=== PATIENT | female | born 1950 | race American Indian/Alaskan Native ===

== ENCOUNTER 2021-04-04 18:34 | Observation (INO) | payer MEDICARE ==
--- NOTE | 2021-04-04 19:31 | Emergency Department Report ---
ED Altered Mental Status HPI - General Chief Complaint: Altered Mental Status Stated Complaint: LETHARGIC Time Seen by Provider: 04/04/21 19:20 Source: EMS Mode of arrival: Stretcher Limitations: Physical Limitation - History of Present Illness Initial Comments: 71-year-old female, history of CVA, dementia, presents to ED from [facility] with altered mental status x1 day. Unclear what patient's baseline is. She currently has no complaints. She denies chest pain, headache, abdominal pain, shortness of breath, vomiting, diarrhea. Patient is oriented to self and place. Unable to tell me the year. Per EMS, Accu-Chek was normal. MD Complaint: altered mental status -: unknown Severity: Unable to Determine Context: unknown Associated Symptoms: denies other symptoms. denies: chest pain, headaches, nausea/vomiting, shortness of breath - Related Data Home Medications Medication Instructions Recorded Confirmed Last Taken AtorvaSTATin 10 mg PO HS 04/04/21 04/04/21 Unknown Haldol 10 mg PO BID 04/04/21 04/04/21 Unknown Memantine 5 mg PO HS 04/04/21 04/04/21 Unknown VALPROIC ACID Liq 04/04/21 Unknown amLODIPine 10 mg PO DAILY 04/04/21 04/04/21 Unknown carvediloL 6.25 mg PO DAILY 04/04/21 04/04/21 Unknown donepeziL 5 mg PO HS 04/04/21 04/04/21 Unknown metFORMIN 1,000 mg PO DAILY 04/04/21 04/04/21 Unknown traZODone [Desyrel] 1 tab PO HS 04/04/21 04/04/21 Unknown Allergies Allergy/AdvReac Type Severity Reaction Status Date / Time No Known Allergies Allergy Unverified 04/04/21 18:48 ED Review of Systems ROS: Stated complaint: LETHARGIC Other details as noted in HPI Comment: All other systems reviewed and negative Constitutional: denies: fever Respiratory: denies: shortness of breath Cardiovascular: denies: chest pain Gastrointestinal: denies: abdominal pain, vomiting, diarrhea Neurological: denies: headache ED Past Medical Hx - Past Medical History Previous Medical History?: Yes Hx Hypertension: Yes Hx CVA: Yes Hx Diabetes: Yes Hx Dementia: Yes - Surgical History Past Surgical History?: No - Social History Smoking Status: Unknown if ever smoked Substance Use Type: None - Medications Home Medications: Home Medications Medication Instructions Recorded Confirmed Last Taken Type AtorvaSTATin 10 mg PO HS 04/04/21 04/04/21 Unknown History Haldol 10 mg PO BID 04/04/21 04/04/21 Unknown History Memantine 5 mg PO HS 04/04/21 04/04/21 Unknown History VALPROIC ACID Liq 04/04/21 Unknown History amLODIPine 10 mg PO DAILY 04/04/21 04/04/21 Unknown History carvediloL 6.25 mg PO DAILY 04/04/21 04/04/21 Unknown History donepeziL 5 mg PO HS 04/04/21 04/04/21 Unknown History metFORMIN 1,000 mg PO DAILY 04/04/21 04/04/21 Unknown History traZODone [Desyrel] 1 tab PO HS 04/04/21 04/04/21 Unknown History ED Physical Exam - General Limitations: Physical Limitation General appearance: in no apparent distress, lethargic - Head Head exam: Present: atraumatic, normocephalic - Eye Eye exam: Present: normal appearance, EOMI - ENT ENT exam: Present: mucous membranes moist - Neck Neck exam: Present: normal inspection - Respiratory Respiratory exam: Present: normal lung sounds bilaterally. Absent: respiratory distress - Cardiovascular Cardiovascular Exam: Present: regular rate, normal rhythm - GI/Abdominal GI/Abdominal exam: Present: soft. Absent: distended, tenderness - Extremities Exam Extremities exam: Present: normal inspection - Neurological Exam Neurological exam: Present: alert, motor sensory deficit (Right-sided weakness, likely baseline, history of CVA reported), other (Patient is slow to respond). Absent: oriented X3 (Oriented to place and self) - Psychiatric Psychiatric exam: Present: flat affect - Skin Skin exam: Present: warm, dry, intact, normal color ED Course Vital Signs 04/04/21 04/04/21 04/04/21 19:03 19:14 19:16 Temperature 99 F Pulse Rate 72 76 Respiratory 23 20 13 Rate Blood Pressure 144/70 144/70 Blood Pressure 144/70 [Left] O2 Sat by Pulse 100 100 Oximetry 04/04/21 04/04/21 04/04/21 19:30 19:46 20:00 Temperature Pulse Rate 76 73 73 Respiratory 14 12 13 Rate Blood Pressure 144/70 144/70 144/70 Blood Pressure [Left] O2 Sat by Pulse 98 98 99 Oximetry 04/04/21 04/04/21 04/04/21 20:22 20:37 20:40 Temperature Pulse Rate 75 73 Respiratory 8 L 14 18 Rate Blood Pressure 144/70 138/76 Blood Pressure [Left] O2 Sat by Pulse 97 98 100 Oximetry 04/04/21 04/04/21 04/04/21 20:45 21:00 21:15 Temperature Pulse Rate 76 76 75 Respiratory 12 18 8 L Rate Blood Pressure 138/76 134/67 134/67 Blood Pressure [Left] O2 Sat by Pulse 99 99 Oximetry - Lab Data Result diagrams: 04/04/21 19:30 04/04/21 19:30 Lab Results 04/04/21 04/04/21 04/04/21 Range/Units 19:30 19:30 19:30 WBC 5.8 (4.5-11.0) K/mm3 RBC 4.36 (3.65-5.03) M/mm3 Hgb 14.8 H (10.1-14.3) gm/dl Hct 43.3 H (30.3-42.9) % MCV 99 H (79-97) fl MCH 34 H (28-32) pg MCHC 34 (30-34) % RDW 12.4 L (13.2-15.2) % Plt Count 264 (140-440) K/mm3 Lymph % (Auto) 25.7 (13.4-35.0) % [place] % (Auto) 6.7 (0.0-7.3) % Eos % (Auto) 0.5 (0.0-4.3) % Baso % (Auto) 0.8 (0.0-1.8) % Lymph # (Auto) 1.5 (1.2-5.4) K/mm3 [place] # (Auto) 0.4 (0.0-0.8) K/mm3 Eos # (Auto) 0.0 (0.0-0.4) K/mm3 Baso # (Auto) 0.0 (0.0-0.1) K/mm3 Seg Neutrophils % 66.3 (40.0-70.0) % Seg Neutrophils # 3.9 (1.8-7.7) K/mm3 Sodium 139 (137-145) mmol/L Potassium 4.1 (3.6-5.0) mmol/L Chloride 98.4 (98-107) mmol/L Carbon Dioxide 21 L (22-30) mmol/L Anion Gap 24 mmol/L BUN 18 H (7-17) mg/dL Creatinine 0.6 (0.6-1.2) mg/dL Estimated GFR > 60 ml/min BUN/Creatinine Ratio 30 % Glucose 100 (65-100) mg/dL POC Glucose (70-105) mg/dL Calcium 9.6 (8.4-10.2) mg/dL Total Bilirubin 0.30 (0.1-1.2) mg/dL Direct Bilirubin < 0.2 (0-0.2) mg/dL Indirect Bilirubin 0.1 mg/dL AST 14 (5-40) units/L ALT 9 (7-56) units/L Alkaline Phosphatase 91 (35-129) units/L Troponin T < 0.010 (0.00-0.029) ng/mL Total Protein 7.1 (6.3-8.2) g/dL Albumin 4.2 (3.9-5) g/dL Albumin/Globulin Ratio 1.4 % TSH (0.270-4.200) mlU/mL Free T4 (0.76-1.46) ng/dL Salicylates (2.8-20.0) mg/dL Acetaminophen (10.0-30.0) ug/mL Valproic Acid (50-100) ug/mL Plasma/Serum Alcohol (0-0.07) % 04/04/21 04/04/21 04/04/21 Range/Units 19:30 19:30 19:30 WBC (4.5-11.0) K/mm3 RBC (3.65-5.03) M/mm3 Hgb (10.1-14.3) gm/dl Hct (30.3-42.9) % MCV (79-97) fl MCH (28-32) pg MCHC (30-34) % RDW (13.2-15.2) % Plt Count (140-440) K/mm3 Lymph % (Auto) (13.4-35.0) % [place] % (Auto) (0.0-7.3) % Eos % (Auto) (0.0-4.3) % Baso % (Auto) (0.0-1.8) % Lymph # (Auto) (1.2-5.4) K/mm3 [place] # (Auto) (0.0-0.8) K/mm3 Eos # (Auto) (0.0-0.4) K/mm3 Baso # (Auto) (0.0-0.1) K/mm3 Seg Neutrophils % (40.0-70.0) % Seg Neutrophils # (1.8-7.7) K/mm3 Sodium (137-145) mmol/L Potassium (3.6-5.0) mmol/L Chloride (98-107) mmol/L Carbon Dioxide (22-30) mmol/L Anion Gap mmol/L BUN (7-17) mg/dL Creatinine (0.6-1.2) mg/dL Estimated GFR ml/min BUN/Creatinine Ratio % Glucose (65-100) mg/dL POC Glucose (70-105) mg/dL Calcium (8.4-10.2) mg/dL Total Bilirubin (0.1-1.2) mg/dL Direct Bilirubin (0-0.2) mg/dL Indirect Bilirubin mg/dL AST (5-40) units/L ALT (7-56) units/L Alkaline Phosphatase (35-129) units/L Troponin T (0.00-0.029) ng/mL Total Protein (6.3-8.2) g/dL Albumin (3.9-5) g/dL Albumin/Globulin Ratio % TSH 1.020 (0.270-4.200) mlU/mL Free T4 1.24 (0.76-1.46) ng/dL Salicylates 0.3 L (2.8-20.0) mg/dL Acetaminophen 5.0 L (10.0-30.0) ug/mL Valproic Acid 74.6 (50-100) ug/mL Plasma/Serum Alcohol (0-0.07) % 04/04/21 04/04/21 Range/Units 19:30 19:38 WBC (4.5-11.0) K/mm3 RBC (3.65-5.03) M/mm3 Hgb (10.1-14.3) gm/dl Hct (30.3-42.9) % MCV (79-97) fl MCH (28-32) pg MCHC (30-34) % RDW (13.2-15.2) % Plt Count (140-440) K/mm3 Lymph % (Auto) (13.4-35.0) % [place] % (Auto) (0.0-7.3) % Eos % (Auto) (0.0-4.3) % Baso % (Auto) (0.0-1.8) % Lymph # (Auto) (1.2-5.4) K/mm3 [place] # (Auto) (0.0-0.8) K/mm3 Eos # (Auto) (0.0-0.4) K/mm3 Baso # (Auto) (0.0-0.1) K/mm3 Seg Neutrophils % (40.0-70.0) % Seg Neutrophils # (1.8-7.7) K/mm3 Sodium (137-145) mmol/L Potassium (3.6-5.0) mmol/L Chloride (98-107) mmol/L Carbon Dioxide (22-30) mmol/L Anion Gap mmol/L BUN (7-17) mg/dL Creatinine (0.6-1.2) mg/dL Estimated GFR ml/min BUN/Creatinine Ratio % Glucose (65-100) mg/dL POC Glucose 93 (70-105) mg/dL Calcium (8.4-10.2) mg/dL Total Bilirubin (0.1-1.2) mg/dL Direct Bilirubin (0-0.2) mg/dL Indirect Bilirubin mg/dL AST (5-40) units/L ALT (7-56) units/L Alkaline Phosphatase (35-129) units/L Troponin T (0.00-0.029) ng/mL Total Protein (6.3-8.2) g/dL Albumin (3.9-5) g/dL Albumin/Globulin Ratio % TSH (0.270-4.200) mlU/mL Free T4 (0.76-1.46) ng/dL Salicylates (2.8-20.0) mg/dL Acetaminophen (10.0-30.0) ug/mL Valproic Acid (50-100) ug/mL Plasma/Serum Alcohol < 0.01 (0-0.07) % - Radiology Data Radiology results: report reviewed, image reviewed - Medical Decision Making 71-year-old female, history of CVA, dementia, presents to ED from [facility] with altered mental status x1 day. Unclear what patient's baseline is. She currently has no complaints. She denies chest pain, headache, abdominal pain, shortness of breath, vomiting, diarrhea. Patient is oriented to self and place. Unable to tell me the year. Per EMS, Accu-Chek was normal. Vital signs are stable. CT head negative for any acute findings. Chest x-ray is normal. Serum labs are normal. UA shows evidence of UTI with 4+ bacteria present. Rocephin given. Drug screen also positive for marijuana and amphetamines. Patient will be admitted by hospitalist, Dr. Carnes, for further management. - Differential Diagnosis Infection, UTI, electrolyte abnormality, renal failure Critical care attestation.: If time is entered above; I have spent that time in minutes in the direct care of this critically ill patient, excluding procedure time. ED Disposition Clinical Impression: UTI (urinary tract infection), Acute encephalopathy, Marijuana use, Amphetamine abuse Disposition: ADMITTED INPATIENT Is pt being admited?: Yes Condition: Stable
[2021-04-04 19:39] LABS: Basophils % (Auto) 0.8 % (0.0-1.8); Eosinophils % (Auto) 0.5 % (0.0-4.3); Hematocrit 43.3 % (30.3-42.9); Hemoglobin 14.8 gm/dl (10.1-14.3); Lymphocytes # (Auto) 1.5 K/mm3 (1.2-5.4); Lymphocytes % (Auto) 25.7 % (13.4-35.0); Mean Corpuscular HGB Conc 34 % (30-34); Mean Corpuscular Volume 99 fl (79-97); Monocytes # (Auto) 0.4 K/mm3 (0.0-0.8); Monocytes % (Auto) 6.7 % (0.0-7.3); Platelet Count 264 K/mm3 (140-440); Red Blood Count 4.36 M/mm3 (3.65-5.03); Red Cell Distribution Width 12.4 % (13.2-15.2)
[2021-04-04 20:04] LABS: Alanine Aminotransferase 9 units/L (7-56); Albumin 4.2 g/dL (3.9-5)
[2021-04-04 20:06] LABS: Blood Urea Nitrogen 18 mg/dL (7-17); Calcium 9.6 mg/dL (8.4-10.2); Hemolysis Index 40
[2021-04-04 20:07] LABS: BUN/Creatinine Ratio 30; Bilirubin,Direct < 0.2 mg/dL (0-0.2)
--- NOTE | 2021-04-04 20:10 | XRay Report ---
CHEST 1 VIEW INDICATION / CLINICAL INFORMATION: weakness. COMPARISON: None available. FINDINGS: SUPPORT DEVICES: None. HEART / MEDIASTINUM: No significant abnormality. LUNGS / PLEURA: No significant pulmonary or pleural abnormality. No pneumothorax. ADDITIONAL FINDINGS: No significant additional findings. IMPRESSION: 1. No acute findings. Signer Name: Jean-Pierre Olson MD Signed: 04/04/2021 8:06 PM Workstation Name: [id number]
[2021-04-04 20:13] LABS: Benzodiazepines Screen,Urine Negative; Cocaine Screen,Urine Negative; Methadone Screen,Urine Negative; Opiate Screen,Urine Negative
[2021-04-04 20:18] LABS: Free T4 (Free Thyroxine) 1.24 ng/dL (0.76-1.46)
[2021-04-04 20:21] LABS: Bacteria,Urine 4+ /HPF (Negative); Bilirubin,Urine NEG (Negative); Blood,Urine NEG (Negative); Color,Urine Yellow (Yellow); Hyaline Casts,Urine 11 /LPF; Mucus,Urine 3+ /HPF
[2021-04-04] MEDS ORDERED: cefTRIAXone/NS 1 GM/50 ML 1 GM/50 ML BAG IV ONE (20:33)
[2021-04-04] MEDS ORDERED: SODIUM CHLORIDE 0.9% 1000 ML 1,000 ML IV ONE (20:33)
[2021-04-04 20:41] LABS: Amphetamine Screen,Urine PRESUMPTIVE POSITIVE; Cannabinoid Screen,Urine PRESUMPTIVE POSITIVE
--- NOTE | 2021-04-04 20:50 | Cat Scan Report ---
CT head/brain wo con INDICATION / CLINICAL INFORMATION: 71 years Female; AMS. TECHNIQUE: Routine CT head without contrast. All CT scans at this location are performed using CT dos e reduction for ALARA by means of automated exposure control. Study limited by motion. COMPARISON: None. FINDINGS: BRAIN / INTRACRANIAL CONTENTS: Old, branch [employer]OLROOM CHECKER infarct seen on the left. Otherwise, no acute hemorrhage, mass effect, midline shift, hydrocephalus, or acute, large territori al infarct. Mild, diffuse cerebral and cerebellar atrophy. There are minimal areas of decreased attenuation in the white matter of the cerebral hemispheres. The se are nonspecific findings and may be related to microangiopathy (hypertension, diabetes, atheroscle rosis), given the patient's age. It might be difficult to evaluate for small areas of ischemia withou t diffusion imaging by MRI. CRANIOCERVICAL JUNCTION: No significant abnormality. ORBITS: No significant abnormality of visualized orbits. SINUSES / MASTOIDS: Visualized paranasal sinuses and mastoid air cells are essentially clear. ADDITIONAL FINDINGS: Atherosclerotic disease is seen in the anterior circulation. IMPRESSION: 1. No focal mass, hemorrhage, hydrocephalus, or acute, large territorial infarct on this limited stud y. Signer Name: Red Romero MD, III Signed: 04/04/2021 8:46 PM Workstation Name: [id number]
[2021-04-04] MEDS ORDERED: ONDANSETRON 4 MG/2 ML INJ IV PRN (21:55)
[2021-04-04] MEDS ORDERED: ACETAMINOPHEN 325 MG TAB PO PRN (21:55)
[2021-04-04] MEDS ORDERED: MORPHINE 2 MG/1 ML INJ IV PRN (21:55)
[2021-04-04] MEDS ORDERED: DEXTROSE 50% IN WATER (25GM) 50 ML SYRINGE IV PRN (21:55)
[2021-04-04] MEDS ORDERED: MORPHINE 4 MG/1 ML INJ IV PRN (21:55)
[2021-04-04] MEDS ORDERED: MAGNESIUM HYDROXIDE (MOM) ORAL LIQD UDC PO PRN (21:55)
--- NOTE | 2021-04-04 22:06 | History and Physical Report ---
History of Present Illness Date of examination: 04/04/21 Date of admission: 04/04/2021 Chief complaint: Altered Mental Status History of present illness: 71-year-old -[place] female with known history of dementia, CVA, hypertension, diabetes mellitus brought into the emergency room via EMS today for altered mental status. Patient unable to give any good history most of the information was gotten from the ER staff. Patient was able to respond to questions by nodding her head. Baseline mental status unknown. According to EMS Accu-Chek was said to be wi thin normal range en route to the hospital. Work-up in the emergency room today, CT scan of the head and chest x-ray were unremarkable. Labs reveals a mild dehydration. Urinalysis also shows a mild UTI. UDS positive for marijuana and amphetamine Past History Past Medical History: diabetes, hypertension, stroke, other (Dementia) Social history: other (Resides at [facility]) Family history: no significant family history Medications and Allergies Allergies Allergy/AdvReac Type Severity Reaction Status Date / Time No Known Allergies Allergy Unverified 04/04/21 18:48 Home Medications Medication Instructions Recorded Confirmed Last Taken Type AtorvaSTATin 10 mg PO HS 04/04/21 04/04/21 Unknown History Haldol 10 mg PO BID 04/04/21 04/04/21 Unknown History Memantine 5 mg PO HS 04/04/21 04/04/21 Unknown History VALPROIC ACID Liq 04/04/21 Unknown History amLODIPine 10 mg PO DAILY 04/04/21 04/04/21 Unknown History carvediloL 6.25 mg PO DAILY 04/04/21 04/04/21 Unknown History donepeziL 5 mg PO HS 04/04/21 04/04/21 Unknown History metFORMIN 1,000 mg PO DAILY 04/04/21 04/04/21 Unknown History traZODone [Desyrel] 1 tab PO HS 04/04/21 04/04/21 Unknown History Active Meds: Active Medications Acetaminophen (Acetaminophen 325 Mg Tab) 650 mg PO Q4H PRN PRN Reason: Pain MILD(1-3)/Fever >100.5/CASTRO Dextrose (Dextrose 50% In Water (25gm) 50 Ml Syringe) 50 ml IV Q30MIN PRN; Protocol PRN Reason: Hypoglycemia Sodium Chloride (Nacl 0.9% 1000 Ml) 1,000 mls @ 125 mls/hr IV DIRECT MAURA Ceftriaxone Sodium (Rocephin/Ns 1 Gm/50 Ml) 1 gm in 50 mls @ 100 mls/hr IV Q24H MAURA; Protocol Insulin Human Lispro (Insulin Lispro 100 Unit/Ml) 0 unit SUB-Q ACHS MAURA; Protocol Magnesium Hydroxide (Magnesium Hydroxide (Mom) Oral Liqd Udc) 30 ml PO Q4H PRN PRN Reason: Constipation Morphine Sulfate (Morphine 2 Mg/1 Ml Inj) 2 mg IV Q4H PRN PRN Reason: Pain, Moderate (4-6) Morphine Sulfate (Morphine 4 Mg/1 Ml Inj) 4 mg IV Q4H PRN PRN Reason: Pain , Severe (7-10) Ondansetron HCl (Ondansetron 4 Mg/2 Ml Inj) 4 mg IV Q8H PRN PRN Reason: Nausea And Vomiting Sodium Chloride (Sodium Chloride 0.9% 10 Ml Flush Syringe) 10 ml IV BID MAURA Sodium Chloride (Sodium Chloride 0.9% 10 Ml Flush Syringe) 10 ml IV PRN PRN PRN Reason: LINE FLUSH Review of Systems ROS unobtainable: due to mental status Exam - Constitutional Vitals: Temp Pulse Resp BP Pulse Ox 99 F 75 8 L 134/67 99 04/04/21 19:14 04/04/21 21:15 04/04/21 21:15 04/04/21 21:15 04/04/21 21:15 General appearance: Present: no acute distress, well-nourished - EENT Eyes: Present: PERRL, EOM intact. Absent: scleral icterus ENT: hearing intact, clear oral mucosa, dentition normal - Neck Neck: Present: supple, normal ROM - Respiratory Respiratory effort: normal Respiratory: bilateral: CTA - Cardiovascular Rhythm: regular Heart Sounds: Present: S1 & S2. Absent: systolic murmur, diastolic murmur, rub, click - Extremities Extremities: no ischemia, pulses intact, pulses symmetrical, No edema, normal temperature, normal color, Full ROM Peripheral Pulses: within normal limits - Abdominal General gastrointestinal: Present: soft, non-tender, non-distended, normal bowel sounds. Absent: mass - Integumentary Integumentary: Present: clear, warm, dry. Absent: rash - Musculoskeletal Musculoskeletal: strength equal bilaterally - Psychiatric Psychiatric: cooperative - Neurologic Neurologic: CNII-XII intact, no focal deficits, moves all extremities HEART Score - HEART Score Troponin: Troponin T < 0.010 ng/mL (0.00-0.029) 04/04/21 19:30 Results - Labs CBC & Chem 7: 04/04/21 19:30 04/04/21 19:30 Labs: Abnormal lab results 04/04/21 04/04/21 04/04/21 Range/Units 19:30 19:30 19:30 Hgb 14.8 H (10.1-14.3) gm/dl Hct 43.3 H (30.3-42.9) % MCV 99 H (79-97) fl MCH 34 H (28-32) pg RDW 12.4 L (13.2-15.2) % Carbon Dioxide 21 L (22-30) mmol/L BUN 18 H (7-17) mg/dL U Epithel Cells (Auto) (0-13.0) /HPF Salicylates 0.3 L (2.8-20.0) mg/dL Acetaminophen (10.0-30.0) ug/mL 04/04/21 04/04/21 Range/Units 19:30 Unknown Hgb (10.1-14.3) gm/dl Hct (30.3-42.9) % MCV (79-97) fl MCH (28-32) pg RDW (13.2-15.2) % Carbon Dioxide (22-30) mmol/L BUN (7-17) mg/dL U Epithel Cells (Auto) 32.0 H (0-13.0) /HPF Salicylates (2.8-20.0) mg/dL Acetaminophen 5.0 L (10.0-30.0) ug/mL Assessment and Plan - Patient Problems (1) Acute encephalopathy Current Visit: Yes Status: Acute Plan to address problem: Etiology unclear. Patient has baseline history of dementia. However UDS was positive for marijuana and amphetamine. We will monitor mental status. (2) Dehydration Current Visit: Yes Status: Acute Plan to address problem: Patient placed on IV fluid. Will monitor chemistry. (3) UTI (urinary tract infection) Current Visit: Yes Status: Acute Plan to address problem: Patient placed on empiric IV antibiotics. (4) DVT prophylaxis Current Visit: Yes Status: Acute Plan to address problem: Patient placed on subcutaneous heparin. (5) Full code status Current Visit: Yes Status: Acute Plan to address problem: Patient is full code. NB: Patient is a resident of [facility]. Consult will be placed to case management for discharge planning and order social welfare research worker.
[2021-04-04] MEDS: INSULIN LISPRO 100 UNIT/ML SUB-Q SCH (22:21)
[2021-04-05] MEDS: SODIUM CHLORIDE 0.9% 1000 ML 1,000 ML IV SCH ×3 (00:21→21:54)
[2021-04-05] MEDS: HEPARIN 5,000 UNIT/1 ML VIAL SUB-Q SCH ×3 (05:26→21:52)
[2021-04-05 06:03] LABS: Basophils % (Auto) 0.5 % (0.0-1.8); Eosinophils % (Auto) 0.8 % (0.0-4.3); Hemoglobin 12.6 gm/dl (10.1-14.3); Lymphocytes # (Auto) 1.1 K/mm3 (1.2-5.4); Lymphocytes % (Auto) 28.1 % (13.4-35.0); Mean Corpuscular HGB Conc 34 % (30-34); Mean Corpuscular Volume 99 fl (79-97); Monocytes # (Auto) 0.3 K/mm3 (0.0-0.8); Monocytes % (Auto) 7.1 % (0.0-7.3); Platelet Count 225 K/mm3 (140-440); Red Blood Count 3.75 M/mm3 (3.65-5.03); Red Cell Distribution Width 12.4 % (13.2-15.2)
[2021-04-05 06:17] LABS: INR 1.09 (0.87-1.13)
[2021-04-05 06:21] LABS: Blood Urea Nitrogen 12 mg/dL (7-17); Calcium 8.3 mg/dL (8.4-10.2); Hemolysis Index 7
[2021-04-05 06:28] LABS: BUN/Creatinine Ratio 24
[2021-04-05] MEDS: INSULIN LISPRO 100 UNIT/ML SUB-Q SCH ×4 (07:57→22:04)
[2021-04-05] MEDS: cefTRIAXone/NS 1 GM/50 ML 1 GM/50 ML BAG IV SCH (09:28)
--- NOTE | 2021-04-05 10:12 | Progress Note ---
Assessment and Plan Assessment and plan: Assessment and plan 71-year-old -[place] female with known history of dementia, CVA, hypertension, diabetes mellitus brought into the emergency room via EMS today for altered mental status. Patient unable to give any good history most of the information was gotten from the ER staff. Patient was able to respond to questions by nodding her head. Baseline mental status unknown. According to EMS Accu-Chek was said to be within normal range en route to the hospital. Work-up in the emergency room today, CT scan of the head and chest x-ray were unremarkable. Labs reveals a mild dehydration. Urinalysis also shows a mild UTI. UDS positive for marijuana and amphetamine (1) Acute encephalopathy Current Visit: Yes Status: Acute Plan to address problem: Etiology unclear. Patient has baseline history of dementia. However UDS was positive for marijuana and amphetamine. We will monitor mental status. (2) Dehydration Current Visit: Yes Status: Acute Plan to address problem: Patient placed on IV fluid. Will monitor chemistry. (3) UTI (urinary tract infection) Current Visit: Yes Status: Acute Plan to address problem: Patient placed on empiric IV antibiotics. (4) DVT prophylaxis Current Visit: Yes Status: Acute Plan to address problem: Patient placed on subcutaneous heparin. (5) Full code status Current Visit: Yes Status: Acute Plan to address problem: Patient is full code. NB: Patient is a resident of [facility]. Consult will be placed to case management for discharge planning and order long term care social worker. 04/05/21 patient seen and examined. Patient is confused. No shortness of breath no chest pain. No other complain.CT scan of the head and chest x-ray were unremarkable. Labs reveals a mild dehydration and UTI. UDS is positive for marijuana and amphetamine. Patient is on Rocephin 1 g IV daily for UTI. We will follow the urine culture. Continue current management. BMP in the morning. We will monitor the patient closely. History Interval history: Patient seen and examined. Lab and radiology reviewed. Patient is confused. No chest pain no shortness of breath. No other complain.CT scan of the head and chest x-ray were unremarkable. Labs reveals a mild dehydration and UTI. UDS is positive for marijuana and amphetamine Hospitalist Physical - Constitutional Vitals: Temp Pulse Resp BP Pulse Ox 97.9 F 77 18 152/61 98 04/05/21 06:27 04/05/21 06:27 04/05/21 06:27 04/05/21 06:27 04/05/21 06:27 General appearance: Present: no acute distress, well-nourished - EENT Eyes: Present: PERRL, EOM intact ENT: hearing intact, clear oral mucosa, dentition normal - Neck Neck: Present: supple, normal ROM - Respiratory Respiratory effort: normal Respiratory: bilateral: CTA - Cardiovascular Rhythm: regular Heart Sounds: Present: S1 & S2 - Extremities Extremities: no ischemia, pulses intact, No edema Peripheral Pulses: within normal limits - Abdominal General gastrointestinal: soft, non-tender, non-distended, normal bowel sounds - Integumentary Integumentary: Present: clear, warm, dry - Psychiatric Psychiatric: other (Confusion) - Neurologic Neurologic: other (Confused) - Allied Health Allied health notes reviewed: nursing HEART Score - HEART Score Troponin: Troponin T < 0.010 ng/mL (0.00-0.029) 04/04/21 19:30 Results - Labs CBC & Chem 7: 04/05/21 05:38 04/05/21 05:38 Labs: Laboratory Last Values WBC 3.8 K/mm3 (4.5-11.0) L 04/05/21 05:38 RBC 3.75 M/mm3 (3.65-5.03) 04/05/21 05:38 Hgb 12.6 gm/dl (10.1-14.3) 04/05/21 05:38 Hct 37.0 % (30.3-42.9) D 04/05/21 05:38 MCV 99 fl (79-97) H 04/05/21 05:38 MCH 34 pg (28-32) H 04/05/21 05:38 MCHC 34 % (30-34) 04/05/21 05:38 RDW 12.4 % (13.2-15.2) L 04/05/21 05:38 Plt Count 225 K/mm3 (140-440) 04/05/21 05:38 Lymph % (Auto) 28.1 % (13.4-35.0) 04/05/21 05:38 [place] % (Auto) 7.1 % (0.0-7.3) 04/05/21 05:38 Eos % (Auto) 0.8 % (0.0-4.3) 04/05/21 05:38 Baso % (Auto) 0.5 % (0.0-1.8) 04/05/21 05:38 Lymph # (Auto) 1.1 K/mm3 (1.2-5.4) L 04/05/21 05:38 Cooper # (Auto) 0.3 K/mm3 (0.0-0.8) 04/05/21 05:38 Eos # (Auto) 0.0 K/mm3 (0.0-0.4) 04/05/21 05:38 Baso # (Auto) 0.0 K/mm3 (0.0-0.1) 04/05/21 05:38 Seg Neutrophils % 63.5 % (40.0-70.0) 04/05/21 05:38 Seg Neutrophils # 2.4 K/mm3 (1.8-7.7) 04/05/21 05:38 PT 15.3 Sec. (12.2-14.9) H 04/05/21 05:38 INR 1.09 (0.87-1.13) 04/05/21 05:38 Sodium 141 mmol/L (137-145) 04/05/21 05:38 Potassium 3.6 mmol/L (3.6-5.0) 04/05/21 05:38 Chloride 103.4 mmol/L (98-107) 04/05/21 05:38 Carbon Dioxide 22 mmol/L (22-30) 04/05/21 05:38 Anion Gap 19 mmol/L 04/05/21 05:38 BUN 12 mg/dL (7-17) 04/05/21 05:38 Creatinine 0.5 mg/dL (0.6-1.2) L 04/05/21 05:38 Estimated GFR > 60 ml/min 04/05/21 05:38 BUN/Creatinine Ratio 24 % 04/05/21 05:38 Glucose 93 mg/dL (65-100) 04/05/21 05:38 POC Glucose 76 mg/dL (70-105) 04/05/21 07:51 Calcium 8.3 mg/dL (8.4-10.2) L 04/05/21 05:38 Total Bilirubin 0.30 mg/dL (0.1-1.2) 04/04/21 19:30 Direct Bilirubin < 0.2 mg/dL (0-0.2) 04/04/21 19:30 Indirect Bilirubin 0.1 mg/dL 04/04/21 19:30 AST 14 units/L (5-40) 04/04/21 19:30 ALT 9 units/L (7-56) 04/04/21 19:30 Alkaline Phosphatase 91 units/L (35-129) 04/04/21 19: Troponin T < 0.010 ng/mL (0.00-0.029) 04/04/21 19:30 Total Protein 7.1 g/dL (6.3-8.2) 04/04/21: Albumin 4.2 g/dL (3.9-5) 04/04/21 19: Albumin/Globulin Ratio 1.4 % 04/04/21 19: TSH 1.020 mlU/mL (0.270-4.200) 04/04/21 19: Free T4 1.24 ng/dL (0.76-1.46) 04/04/21 19:30 Urine Color Yellow (Yellow) 04/04/21 Unknown Urine Turbidity Slightly-cloudy (Clear) 04/04/21 Unknown Urine pH 5.0 (5.0-7.0) 04/04/21 Unknown Ur Specific [place] 1.027 (1.003-1.030) 04/04/21 Unknown Urine Protein 100 mg/dl mg/dL (Negative) 04/04/21 Unknown Urine Glucose (UA) Neg mg/dL (Negative) 04/04/21 Unknown Urine Ketones 80 mg/dL (Negative) 04/04/21 Unknown Urine Blood Neg (Negative) 04/04/21 Unknown Urine Nitrite Neg (Negative) 04/04/21 Unknown Urine Bilirubin Neg (Negative) 04/04/21 Unknown Urine Urobilinogen 2.0 mg/dL (<2.0) 04/04/21 Unknown Ur Leukocyte Esterase Neg (Negative) 04/04/21 Unknown Urine WBC (Auto) 3.0 /HPF (0.0-6.0) 04/04/21 Unknown Urine RBC (Auto) 4.0 /HPF (0.0-6.0) 04/04/21 Unknown U Epithel Cells (Auto) 32.0 /HPF (0-13.0) H 04/04/21 Unknown Urine Bacteria (Auto) 4+ /HPF (Negative) 04/04/21 Unknown Hyaline Casts 11 /LPF 04/04/21 Unknown Urine Mucus 3+ /HPF 04/04/21 Unknown Salicylates 0.3 mg/dL (2.8-20.0) L 04/04/21 19:30 Urine Opiates Screen Negative 04/04/21 Unknown Urine Methadone Screen Negative 04/04/21 Unknown Acetaminophen 5.0 ug/mL (10.0-30.0) L 04/04/21 19:30 Ur Barbiturates Screen Negative 04/04/21 Unknown Valproic Acid 74.6 ug/mL (50-100) 04/04/21 19:30 Ur Phencyclidine Scrn Negative 04/04/21 Unknown Ur Amphetamines Screen Presumptive positive 04/04/21 Unknown U Benzodiazepines Scrn Negative 04/04/21 Unknown Urine Cocaine Screen Negative 04/04/21 Unknown U Marijuana (THC) Screen Presumptive positive 04/04/21 Unknown Drugs of Abuse Note Disclamer 04/04/21 Unknown Plasma/Serum Alcohol < 0.01 % (0-0.07) 04/04/21 19:30 - Imaging and Cardiology Chest x-ray: report reviewed CT Scan - head: report reviewed Diaz/IV: Voiding Method Incontinent Active Medications - Current Medications Current Medications: Generic Name Dose Route Start Last Admin Trade Name Freq PRN Reason Stop Dose Admin Acetaminophen 650 mg 04/04/21 21:55 Acetaminophen 325 Mg Tab PO Q4H PRN Pain MILD(1-3)/Fever >100.5/CASTRO Dextrose 0 ml 04/04/21 21:55 Dextrose 50% In Water (25gm) 50 Ml Syringe IV Q30MIN PRN Hypoglycemia Protocol Heparin Sodium (Porcine) 5,000 unit 04/05/21 06:00 04/05/21 05:26 Heparin 5,000 Unit/1 Ml Vial SUB-Q 5,000 unit Q8HR MAURA Administration Sodium Chloride 1,000 mls @ 125 mls/hr 04/04/21 22:00 04/05/21 09:27 Nacl 0.9% 1000 Ml IV 125 mls/hr DIRECT MAURA Administration Ceftriaxone Sodium 1 gm in 50 mls @ 100 mls/hr 04/05/21 10:00 04/05/21 09:28 Rocephin/Ns 1 Gm/50 Ml IV 100 mls/hr Q24HR MAURA Administration Protocol Insulin Human Lispro 0 unit 04/04/21 22:00 04/05/21 07:57 Insulin Lispro 100 Unit/Ml SUB-Q Not Given [facility] Protocol Magnesium Hydroxide 30 ml 04/04/21 21:55 Magnesium Hydroxide (Mom) Oral Liqd Udc PO Q4H PRN Constipation Morphine Sulfate 2 mg 04/04/21 21:55 Morphine 2 Mg/1 Ml Inj IV Q4H PRN Pain, Moderate (4-6) Morphine Sulfate 4 mg 04/04/21 21:55 Morphine 4 Mg/1 Ml Inj IV Q4H PRN Pain , Severe (7-10) Ondansetron HCl 4 mg 04/04/21 21:55 Ondansetron 4 Mg/2 Ml Inj IV Q8H PRN Nausea And Vomiting Sodium Chloride 10 ml 04/04/21 22:00 04/05/21 09:28 Sodium Chloride 0.9% 10 Ml Flush Syringe IV 10 ml BID MAURA Administration Sodium Chloride 10 ml 04/04/21 21:55 Sodium Chloride 0.9% 10 Ml Flush Syringe IV PRN PRN LINE FLUSH Nutrition/Malnutrition Assess - Dietary Evaluation Nutrition/Malnutrition Findings: Nutrition Notes Start: 04/05/21 09:0 3 Freq: Status: Active Protocol: Document 04/05/21 09:03 ELDA (Rec: 04/05/21 09:10 [facility] [id number]) Nutrition Notes Need for Assessment generated from: MD Order,Education Initial or Follow up Assessment Current Diagnosis Diabetes,Hypertension,Stroke Other Pertinent Diagnosis AMS, Dehydration, UTI, Dementia Current Diet Cardiac/Consistent CHO Labs/Tests Reviewed Pertinent Medications NS at 125ml/hr Height 5 ft 3 in Weight 69 kg [place] Body Weight (kg) 52.27 BMI 26.9 Weight Status Appropriate Subjective/Other Information RD consulted for diet education; pt not appropriate for diet education at this time. Burn Absent Trauma Absent Minimum of two criteria No #1 Nutrition Diagnosis Predicted suboptimal energy intake Etiology advanced age, dementia As Evidenced by Signs and Symptoms pt confused upon admission Is patient on ventilator? No Is Patient Ambulatory and/or Out of Bed No REE-([facility]-confined to bed) 7736.144 Calculation Used for Recommendations Atkins-St Jeor Additional Notes Pro needs 1-1.2g/k-83g/ day Fluid needs 1ml/kcal Nutrition Intervention Change Diet Order: Continue current diet order Goal #1 PO intake to meet at least 75% energy and pro needs Anticipated Discharge Needs: None identified at this time Follow-Up By: 04/09/21 Additional Comments F/U: intakes - Malnutrition Assessment Minimum of two criteria: No physical signs of malnutrition - Attestation Statement I have reviewed and agreed w/ Malnutrition eval & tx plan: Yes
[2021-04-06 01:31] LABS: Blood Urea Nitrogen 4 mg/dL (7-17); Calcium 8.7 mg/dL (8.4-10.2); Hemolysis Index 4
[2021-04-06 01:42] LABS: BUN/Creatinine Ratio 8
[2021-04-06] MEDS: POTASSIUM CHLORIDE 10 MEQ 10 MEQ/100 ML BAG IV SCH ×5 (02:21→15:05)
[2021-04-06] MEDS ORDERED: POTASSIUM CHLORIDE ER 20 MEQ TAB PO ONE (02:53)
[2021-04-06] MEDS: HEPARIN 5,000 UNIT/1 ML VIAL SUB-Q SCH ×2 (05:09→13:43)
[2021-04-06] MEDS: SODIUM CHLORIDE 0.9% 1000 ML 1,000 ML IV SCH (05:37)
[2021-04-06] MEDS ORDERED: POTASSIUM CHLORIDE ER 20 MEQ TAB PO NR (08:30)
[2021-04-06] MEDS: cefTRIAXone/NS 1 GM/50 ML 1 GM/50 ML BAG IV SCH (09:07)
[2021-04-06] MEDS: INSULIN LISPRO 100 UNIT/ML SUB-Q SCH ×2 (09:08→12:40)
--- NOTE | 2021-04-06 09:27 | Discharge Summary ---
Providers - Providers Date of Admission: 04/04/21 21:55 Attending physician: IMMANUEL LAU MD 04/04/21 Consult to Case Management [CONS] Routine Services Needed at Discharge: All Around Patternmaker Notified:: mulu Comment:: Discharge Planning 04/04/21 21:55 Consult to Dietitian/Nutrition [CONS] Routine Physician Instructions: Reason For Exam: Reason for Consult: Diet education Hospitalization Reason for admission: Altered mental status Condition: Stable Hospital course: 71-year-old -[place] female with known history of dementia, CVA, hypertension, diabetes mellitus brought into the emergency room via EMS today for altered mental status. Patient unable to give any good history most of the information was gotten from the ER staff. Patient was able to respond to questions by nodding her head. Baseline mental status unknown. According to EMS Accu-Chek was said to be within normal range en route to the hospital. Work-up in the emergency room today, CT scan of the head and chest x-ray were unremarkable. Labs reveals a mild dehydration. Urinalysis also shows a mild UTI. UDS positive for marijuana and amphetamine 04/05/21 patient seen and examined. Patient is confused. No shortness of breath no chest pain. No other complain.CT scan of the head and chest x-ray were unremarkable. Labs reveals a mild dehydration and UTI. UDS is positive for marijuana and amphetamine. Patient is on Rocephin 1 g IV daily for UTI. We will follow the urine culture. Continue current management. BMP in the morning. We will jordan tor the patient closely. 04/06: Patient seen and examined this a.m. more awake more alert she is not sure why she is here in the hospital. Potassium was noted to be 2.9 was corrected overnight repeat lab is pending. I do not have any family contact to discuss but appears that the patient was undergoing drug treatment at [place]. She is medically stable to return to her drug treatment once her potassium is corrected. Have discussed with the case management team and also with nursing staff. 15 minutes counseling provided to the patient. Believe her mentation wi ll continue to improve as the days go by. She will need an outpatient work-up for possible worsening dementia she does have a baseline dementia and had a history of CVA in the past. She will resume her home medications. (1) Acute metabolic encephalopathy secondary to substance overdose and abuse Current Visit: Yes Status: Acute Plan to address problem: Etiology unclear. Patient has baseline history of dementia. However UDS was positive for marijuana and amphetamine. We will monitor mental status. (2) Dehydration Current Visit: Yes Status: Acute Plan to address problem: Patient placed on IV fluid. Will monitor chemistry. (3) acute cystitis Current Visit: Yes Status: Acute Plan to address problem: Patient placed on empiric IV antibiotics. NB: Patient is a resident of [facility]. Consult will be placed to case management for discharge planning and order social worker masters. Disposition: 01 HOME / SELF CARE / HOMELESS Final Discharge Diagnosis (Prints w/discharge instructions): Acute metabolic encephalopathy secondary to drug abuse and acute cystitis Time spent for discharge: 35-minute Core Measure Documentation - Palliative Care Palliative Care/ Comfort Measures: Not Applicable - Core Measures Any of the following diagnoses?: none Exam - Physical Exam Narrative exam: VITAL SIGNS: Reviewed. GENERAL: The patient appears normally developed, a bit disheveled vital signs as documented. HEAD: No signs of head trauma. EYES: Pupils are equal. Extraocular motions intact. EARS: Hearing grossly intact. MOUTH: Oropharynx is normal. NECK: No adenopathy, no JVD. CHEST: Chest with clear breath sounds bilaterally. No wheezes, rales, or rhonchi. CARDIAC: Regular rate and rhythm. S1 and S2, without murmurs, gallops, or rubs. VASCULAR: No Edema. Peripheral pulses normal and equal in all extremities. ABDOMEN: Soft, non tender and non distended. No rebound or guarding, and no masses palpated. Bowel Sounds normal. MUSCULOSKELETAL: Good range of motion of all major joints. Extremities without clubbing, cyanosis or edema. NEUROLOGIC EXAM: Alert and oriented x [address] but not time no focal sensory or strength deficits. Speech normal. Follows commands. PSYCHIATRIC: Mood normal. SKIN: detail exam as documented in skin assessment - Constitutional Vitals: Temp Pulse Resp BP Pulse Ox 98.5 F 78 20 160/79 99 04/06/21 04:16 04/06/21 04:16 04/06/21 04:16 04/06/21 04:16 04/06/21 04:16 Plan Activity: advance as tolerated, fall precautions Diet: low fat Special Instructions: record daily weights, record daily BP diary, smoking cessation Care Plan Goals: must quit substance abuse Follow up with: DAYNA CHANG [Other] - 3-5 Days Prescriptions: cephALEXin [Keflex] 500 mg PO Q12HR #6 cap
[2021-04-06 11:58] VITALS: BP 153/44
--- NOTE | 2021-04-07 11:21 | Electrocardiograph Report ---
[facility] Test Date: 2021-04-04 Test Time: 20:10:55 Pat Name: MAHI RODNEY Department: Room: A383 1 Gender: F Crate Tier: KENNETH : 1950 Requested By: DILLON BUCIO Order Number: [id number] Reading MD: Jose G Swenson Measurements Intervals [place] Rate: 75 P: 1 AL: 105 QRS: 23 QRSD: 70 T: 5 QT: 424 QTc: 475 Interpretive Statements Sinus rhythm Low voltage QRS No previous ECG available for comparison Electronically Signed On 04-07-2021 11:21:23 EST by Jose G Swenson
== END 2021-04-06 16:27 | disposition home or self-care (01) ==
LOC: ED 18:34 → 3A 21:55
PROVIDERS: ADMIT Internal Medicine Geriatric Medicine; ATTEND Internal Medicine
DX: G93.40 Encephalopathy, unspecified (principal); E86.0 Dehydration; N30.00 Acute cystitis without hematuria; I10 Essential (primary) hypertension; E11.9 Type 2 diabetes mellitus without complications; F12.90 Cannabis use, unspecified, uncomplicated; F15.10 Other stimulant abuse, uncomplicated; F03.90 Unspecified dementia, unspecified severity, without behavioral disturbance, psychotic disturbance, mood disturbance, and anxiety; Z86.73 Personal history of transient ischemic attack (TIA), and cerebral infarction without residual deficits; Z79.84 Long term (current) use of oral hypoglycemic drugs; Z79.4 Long term (current) use of insulin; Z79.899 Other long term (current) drug therapy; Z98.890 Other specified postprocedural states
CPT/HCPCS: 36415; 70450; 71045; 80048; 80076; 80164; 80307; 81001; 82962; 84132; 84439; 84443; 84484; 85025; 85610; 93005; 96361; 96365; 96366; 96372; 99285; G0378; J0696; J1644; J3480; J7030; 80320; Q0162; Q9967; G0480; J1815

== ENCOUNTER 2021-08-04 10:56 | Inpatient (IN) | payer MEDICARE ==
--- NOTE | 2021-08-04 11:03 | Emergency Department Report ---
HPI - HPI HPI: Charge nurse triage/room 5 The patient is a 71-year-old female present with a chief complaint of dysarthria and left-sided weakness. Per EMS the patient has some difficulty walking last night and staff at the [facility] says she was not walking as much as she normally does. This morning patient was unable to walk after she experienced left lower extremity weakness and slurred speech. ED Past Medical Hx - Past Medical History Hx Hypertension: Yes Hx CVA: Yes Hx Diabetes: Yes Hx Psychiatric Treatment: Yes (Schizophrenia) Hx Dementia: Yes Additional medical history: Elevated cholesterol - Surgical History Past Surgical History?: No - Family History Family history: no significant - Social History Smoking Status: Never Smoker Substance Use Type: None - Medications Home Medications: Home Medications Medication Instructions Recorded Confirmed Last Taken Type AtorvaSTATin 10 mg PO QHS 04/20/21 04/20/21 04/17/21 History Memantine 5 mg PO QHS 04/20/21 04/20/21 04/17/21 History Metformin HCl [metFORMIN] 1,000 mg PO BID 04/20/21 04/20/21 04/18/21 History VALPROIC ACID Liq [DepaKENE Liq] 500 mg PO BID 04/20/21 04/20/21 04/18/21 History amLODIPine 10 mg PO DAILY 04/20/21 04/20/21 04/18/21 History carvediloL [Coreg] 6.25 mg PO BID 04/20/21 04/20/21 04/18/21 History donepeziL [Aricept] 5 mg PO QHS 04/20/21 04/20/21 04/17/21 History haloperidoL [Haloperidol] 10 mg PO BID 04/20/21 04/20/21 04/18/21 History AtorvaSTATin 10 mg PO QHS tablet 04/30/21 Unknown Rx Memantine 5 mg PO HS tablet 04/30/21 Unknown Rx amLODIPine 10 mg PO DAILY tablet 04/30/21 Unknown Rx carvediloL [Coreg] 6.25 mg PO DAILY tablet 04/30/21 Unknown Rx donepeziL [Aricept] 5 mg PO QHS tablet 04/30/21 Unknown Rx haloperidoL [Haldol] 10 mg PO BID tablet 04/30/21 Unknown Rx traZODone [Desyrel] 50 mg PO HS tablet 04/30/21 Unknown Rx ED Review of Systems ROS: Stated complaint: STROKE Other details as noted in HPI Constitutional: no symptoms reported Eyes: denies: eye pain ENT: denies: throat pain Respiratory: no symptoms reported Cardiovascular: denies: chest pain Endocrine: no symptoms reported Gastrointestinal: denies: abdominal pain Genitourinary: denies: dysuria Musculoskeletal: denies: back pain Neurological: weakness, other (Dysarthria) Physical Exam - Physical Exam Physical Exam: GENERAL: The patient is well-developed well-nourished female lying on stretcher exhibiting slurred speech. [] HEENT: Normocephalic. Atraumatic. Extraocular motions are intact. Patient has moist mucous membranes. NECK: Supple. Trachea midline CHEST/LUNGS: Clear to auscultation. There is no respiratory distress noted. HEART/CARDIOVASCULAR: Regular. There is no tachycardia. There is no gallop rub or murmur. ABDOMEN: Abdomen is soft, nontender. Patient has normal bowel sounds. There is no abdominal distention. SKIN: There is no rash. There is no edema. There is no diaphoresis. NEURO: The patient is awake and alert. The patient is cooperative. The patient is unable to raise left lower extremity off of stretcher. Patient able to bend right hip and knee off of stretcher. Patient able to raise right upper extremity above the level of the shoulders. Patient able to raise left upper extremity but does not go above the level of the shoulders. The patient has slurred speech NIHSS= 4 MUSCULOSKELETAL: There is no evidence of acute injury. ED Medical Decision Making - Lab Data Result diagrams: 08/04/21 11:11 08/04/21 12:21 Laboratory Tests 08/04/21 08/04/21 08/04/21 11:11 11:11 11:11 WBC 8.0 RBC 3.99 Hgb 14.0 Hct 40.3 MCV 101 H MCH 35 H MCHC 35 H RDW 13.4 Plt Count 313 Lymph % (Auto) 25.5 [place] % (Auto) 7.0 Eos % (Auto) 0.7 Baso % (Auto) 1.1 Lymph # (Auto) 2.0 [place] # (Auto) 0.6 Eos # (Auto) 0.1 Baso # (Auto) 0.1 Add Manual Diff Complete Seg Neutrophils % 65.7 Seg Neutrophils # 5.3 PT 12.4 INR 0.84 L APTT 27.5 Thrombin Time 17.2 Sodium 136 L Potassium 6.0 H Chloride 98.3 Carbon Dioxide 24 Anion Gap 20 BUN 10 Creatinine 0.5 L Estimated GFR > 60 BUN/Creatinine Ratio 20 Glucose 234 H POC Glucose Calcium 10.3 H Total Bilirubin 0.20 AST 21 ALT 12 Alkaline Phosphatase 99 Total Protein 8.1 Albumin 4.5 Albumin/Globulin Ratio 1.3 Valproic Acid 08/04/21 08/04/21 08/04/21 11:11 11:36 12:21 WBC RBC Hgb Hct MCV MCH MCHC RDW Plt Count Lymph % (Auto) [place] % (Auto) Eos % (Auto) Baso % (Auto) Lymph # (Auto) [place] # (Auto) Eos # (Auto) Baso # (Auto) Add Manual Diff Seg Neutrophils % Seg Neutrophils # PT INR APTT Thrombin Time Sodium Potassium 4.4 D Chloride Carbon Dioxide Anion Gap BUN Creatinine Estimated GFR BUN/Creatinine Ratio Glucose POC Glucose 204 H Calcium Total Bilirubin AST ALT Alkaline Phosphatase Total Protein Albumin Albumin/Globulin Ratio Valproic Acid < 2.8 L - EKG Data -: EKG Interpreted by Nh EKG shows normal: sinus rhythm Rate: normal - EKG Data When compared to previous EKG there are: previous EKG unavailable Interpretation: other (No ischemic changes seen) - Radiology Data Radiology results: pending (CTA head, CTA neck), report reviewed (CT head), image reviewed (CT head) [place] [id number] Cat Scan Report Signed Patient: MAHI RODNEY MR#: [id number] 5 : 1950 Acct:[id number] Age/Sex: 71 / F ADM Date: 08/04/21 Loc: ED Attending Dr: Ordering Physician: LAZARO BARAJAS MD Date of Service: 08/04/21 Procedure(s): CT head/brain wo con Accession Number(s): [id number] cc: LAZARO BARAJAS MD CT head/brain wo con INDICATION: CODE STROKE CALL [phone] Left-sided weakness. TECHNIQUE: Routine CT head. All CT scans at this location are performed using CT dose reduction for ALARA by means of automated exposure control. COMPARISON: 04/18/21. FINDINGS: Intracranial: Diallo-white matter differentiation is maintained. Encephalomalacia from remote left occipital infarction and left lb infarction. No intracranial hemorrhage. No extra axial collection. No hydro cephalus. No herniation. Sinuses: Paranasal sinuses and mastoid air cells are essentially clear. Orbits: Globes are intact. Calvarium: No acute fracture. IMPRESSION: 1. No evidence of acute infarction. No hemorrhage Informed Doctor at 10:20 Signer Name: Tommy Brambila MD Signed: 08/04/2021 11:21 AM Workstation Name: [id number] Transcribed By: CS Dictated By: Tommy Brambila MD Electronically Authenticated By: Tommy Brambila MD Signed Date/Time: 08/04/21 1121 DD/ 1117 TD/TT: - Differential Diagnosis CVA Critical care attestation.: If time is entered above; I have spent that time in minutes in the direct care of this critically ill patient, excluding procedure time. ED Disposition Clinical Impression: CVA (cerebral vascular accident) Disposition: 09 ADMITTED INPATIENT Is pt being admited?: Yes Does the pt Need Aspirin: Yes Condition: Fair Referrals: JORGE A MADERA MD [Primary Care Provider] - 3-5 Days Time of Disposition: 13:46 (Hospitalist notified (Dr. Rosas))
--- NOTE | 2021-08-04 11:26 | Cat Scan Report ---
CT head/brain wo con INDICATION: CODE STROKE CALL [phone] Left-sided weakness. TECHNIQUE: Routine CT head. All CT scans at this location are performed using CT dose reduction for A KAREY by means of automated exposure control. COMPARISON: 04/18/21. FINDINGS: Intracranial: Diallo-white matter differentiation is maintained. Encephalomalacia from remote left occi pital infarction and left lb infarction. No intracranial hemorrhage. No extra axial collection. No hydrocephalus. No herniation. Sinuses: Paranasal sinuses and mastoid air cells are essentially clear. Orbits: Globes are intact. Calvarium: No acute fracture. IMPRESSION: 1. No evidence of acute infarction. No hemorrhage Informed Doctor at 10:20 Signer Name: Tommy Brambila MD Signed: 08/04/2021 11:21 AM Workstation Name: [id number]
[2021-08-04 11:31] LABS: INR 0.84 (0.87-1.13)
[2021-08-04 11:32] LABS: Partial Thromboplastin Time 27.5 Sec. (24.2-36.6)
[2021-08-04] MEDS ORDERED: ASPIRIN 325 MG TAB PO ONE (11:34)
[2021-08-04 11:36] LABS: Alanine Aminotransferase 12 units/L (7-56); Albumin 4.5 g/dL (3.9-5); Blood Urea Nitrogen 10 mg/dL (7-17); Calcium 10.3 mg/dL (8.4-10.2); Hematocrit 40.3 % (30.3-42.9); Hemolysis Index 182; Mean Corpuscular HGB Conc 35 % (30-34); Mean Corpuscular Volume 101 fl (79-97); Platelet Count 313 K/mm3 (140-440); Red Blood Count 3.99 M/mm3 (3.65-5.03); Red Cell Distribution Width 13.4 % (13.2-15.2)
[2021-08-04 11:37] LABS: Basophils # (Auto) 0.1 K/mm3 (0.0-0.1); Basophils % (Auto) 1.1 % (0.0-1.8); Eosinophils # (Auto) 0.1 K/mm3 (0.0-0.4); Eosinophils % (Auto) 0.7 % (0.0-4.3); Lymphocytes % (Auto) 25.5 % (13.4-35.0); Monocytes # (Auto) 0.6 K/mm3 (0.0-0.8)
[2021-08-04] MEDS ORDERED: ASPIRIN 300 MG RECT SUPP PR ONE (11:40)
[2021-08-04 11:41] LABS: BUN/Creatinine Ratio 20
--- NOTE | 2021-08-04 11:50 | Emergency Department Report ---
Blank Doc - Documentation Documentation: [facility] Consult Note # Demographics Consult Type: Acute Stroke Level 2 (4.5-24 hrs) Patient Location: Emergency Room First Name: Danni Last Name: José Luis Gender: Female Facility: [facility] Time of Initial Page (Eastern Time): 08/04/2021, 10:49 Time of Return Call (Eastern Time): 08/04/2021, 10:49 # HPI History: pt was noted last night to not be walking as well, worsened this AM, now left sided weakness and dysarthria # Scores NIHSS Total: 0 # PMH-FH-SH Past Medical History: hypertension Social History[facility] # Assessment Impression: Ischemic Stroke (Acute) # Plan Thrombolytic/Intervention: NOT IV Thrombolysis or IA Intervention candidate Thrombolytic Exclusion: > 4.5 hours Intraarterial Exclusion: clinically consistent with small vessel disease Blood Pressure Management: labetolol Target Blood Pressure: SBP < 220 SBP > 100 Labs: hemoglobin A1c lipid panel Imaging: (urgency: STAT): CT Angiogram Head and CT Angiogram Neck AND call back with results if abnormal Imaging: (urgency: routine): MRI Brain without contrast Diagnostic Test: echo without bubble study Therapy/Evaluation: NPO until swallow evaluation PT/OT evaluation speech/swallow consultation Medication: aspirin 81 mg daily start statin with goal of LDL < 70 DVT Prophylaxis: SCD Other: LDL < 70 If patient has any neurological deterioration please call me back immediately permissive hypertension telemetry monitoring I have discussed my recommendations with the referring provider Disposition: admit # Logistics Telemedicine: phone only
[2021-08-04 12:10] LABS: Thrombin Time 17.2 Sec. (15.1-19.6)
--- NOTE | 2021-08-04 13:48 | History and Physical Report ---
History of Present Illness Chief complaint: She has more weakness on her left side History of present illness: 71 YO Female with HTN, DM, HLD, Vascular Dementia, Cerebral Atherosclerosis complicated by Dysphagia, Schizophrenia presents to ED for evaluation. Patient is confused with diminished cognition and is unable to provide history the time of my evaluation. Patient history provided by EMS staff, ED staff, as well as custodial facility staff. Staff reports that patient was found to have new onset and worsening left-sided weakness this morning. EMS was notified and upon arrival the patient was found to have a focal neurologic deficit. A code stroke was called and the patient was transported to [facility] for further care and evaluation of the aforementioned symptoms. The patient was seen and evaluated in the emergency department. All lab and imaging studies reviewed. 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 Patient outside therapeutic window for TPA. Patient admitted to telemetry and initiated on CVA protocol. Telemetry neurology consulted in ED. No reports of fever, chills, chest pain, palpitation, productive cough, skin rash, recent ill contact, or known exposure to COVID-19. Prior admission on 04/18/2021 reviewed. All medication listed at time of admission has been reconciled. Advance care planning conducted in ED. patient has a positive gag reflex and is able to protect her airway without dif ficulty at the time of evaluation. Past History Past Medical History: diabetes, hypertension, hyperlipidemia, stroke, other (See HPI) Past Surgical History: No surgical history Social history: single. denies: smoking, alcohol abuse, prescription drug abuse Family history: diabetes, hypertension Medications and Allergies Allergies Allergy/AdvReac Type Severity Reaction Status Date / Time No Known Allergies Allergy Verified 08/04/21 10:59 Home Medications Medication Instructions Recorded Confirmed Last Taken Type AtorvaSTATin 10 mg PO QHS 04/20/21 04/20/21 04/17/21 History Memantine 5 mg PO QHS 04/20/21 04/20/21 04/17/21 History Metformin HCl [metFORMIN] 1,000 mg PO BID 04/20/21 04/20/21 04/18/21 History VALPROIC ACID Liq [DepaKENE Liq] 500 mg PO BID 04/20/21 04/20/21 04/18/21 Hi story amLODIPine 10 mg PO DAILY 04/20/21 04/20/21 04/18/21 History carvediloL [Coreg] 6.25 mg PO BID 04/20/21 04/20/21 04/18/21 History donepeziL [Aricept] 5 mg PO QHS 04/20/21 04/20/21 04/17/21 History haloperidoL [Haloperidol] 10 mg PO BID 04/20/21 04/20/21 04/18/21 History AtorvaSTATin 10 mg PO QHS tablet 04/30/21 Unknown Rx Memantine 5 mg PO HS tablet 04/30/21 Unknown Rx amLODIPine 10 mg PO DAILY tablet 04/30/21 Unknown Rx carvediloL [Coreg] 6.25 mg PO DAILY tablet 04/30/21 Unknown Rx donepeziL [Aricept] 5 mg PO QHS tablet 04/30/21 Unknown Rx haloperidoL [Haldol] 10 mg PO BID tablet 04/30/21 Unknown Rx traZODone [Desyrel] 50 mg PO HS tablet 04/30/21 Unknown Rx Review of Systems ROS unobtainable: due to mental status Exam - Constitutional Vitals: Temp Pulse Resp BP Pulse Ox 85 17 181/82 95 08/04/21 11:41 08/04/21 11:31 08/04/21 11:31 08/04/21 11:31 General appearance: Present: mild distress - EENT Eyes: Present: PERRL ENT: hearing intact, clear oral mucosa, hearing decreased - Neck Neck: Present: supple, normal ROM - Respiratory Respiratory effort: normal Respiratory: bilateral: CTA - Cardiovascular Heart Sounds: Present: S1 & S2. Absent: rub, click - Extremities Extremities: pulses symmetrical, No edema Peripheral Pulses: within normal limits - Abdominal General gastrointestinal: Present: soft, non-tender, non-distended, normal bowel sounds Female genitourinary: Present: normal - Integumentary Integumentary: Present: clear, warm, dry - Musculoskeletal Musculoskeletal: left sided weakness - Psychiatric Psychiatric: no appropriate mood/affect, no intact judgment & insight, no memory intact - Neurologic Neurologic: CNII-XII intact, focal deficits, moves all extremities, no gait normal Results - Labs CBC & Chem 7: 08/04/21 11:11 08/04/21 12:21 Labs: Abnormal lab results 08/04/21 08/04/21 08/04/21 Range/Units 11:11 11:11 11:11 MCV 101 H (79-97) fl MCH 35 H (28-32) pg MCHC 35 H (30-34) % INR 0.84 L (0.87-1.13) Sodium 136 L (137-145) mmol/L Potassium 6.0 H (3.6-5.0) mmol/L Creatinine 0.5 L (0.6-1.2) mg/dL Glucose 234 H (65-100) mg/dL POC Glucose (70-105) mg/dL Calcium 10.3 H (8.4-10.2) mg/dL Valproic Acid (50-100) ug/mL 08/04/21 08/04/21 Range/Units 11:11 11:36 MCV (79-97) fl MCH (28-32) pg MCHC (30-34) % INR (0.87-1.13) Sodium (137-145) mmol/L Potassium (3.6-5.0) mmol/L Creatinine (0.6-1.2) mg/dL Glucose (65-100) mg/dL POC Glucose 204 H (70-105) mg/dL Calcium (8.4-10.2) mg/dL Valproic Acid < 2.8 L (50-100) ug/mL Assessment and Plan - Patient Problems (1) CVA (cerebral vascular accident) Current Visit: Yes Status: Acute Plan to address problem: CVA protocol: CT head, neuro check, seizure precautions, aspiration precautions, fall precautions, antiplatelet therapy, lipid panel, statin therapy, physical therapy consult, outpatient therapy consulted, speech therapy consulted, echocardiogram, carotid Doppler. Telemetry neurology consulted. Patient deemed outside therapeutic window for TPA. (2) Dysarthria as late effect of stroke Current Visit: Yes Status: Acute Plan to address problem: Speech therapy consulted, supportive care. (3) Cerebral atherosclerosis Current Visit: No Status: Acute Plan to address problem: Risk factor reduction, antiplatelet therapy, supportive care. (4) Dysphagia as late effect of cerebrovascular disease Current Visit: No Status: Acute Plan to address problem: Speech therapy consulted, supportive care, aspiration precautions. (5) DVT prophylaxis Current Visit: No Status: Acute Plan to address problem: SCD bilateral lower extremities in bed (6) Advance care planning Current Visit: No Status: Acute Plan to address problem: Disease education conducted, care plan discussed, diagnoses discussed, prognosis discussed, patient is full code, +30 minutes.
[2021-08-04] MEDS ORDERED: oxyCODONE /ACETAMINOPHEN 5-325MG TAB PO PRN (15:00)
[2021-08-04] MEDS ORDERED: HYDROmorphone 1 MG/1 ML INJ IV PRN (15:00)
[2021-08-04] MEDS ORDERED: MAGNESIUM HYDROXIDE (MOM) ORAL LIQD UDC PO PRN (15:00)
[2021-08-04] MEDS ORDERED: METOCLOPRAMIDE 10 MG TAB PO PRN (15:00)
[2021-08-04] MEDS ORDERED: PROMETHAZINE 25 MG RECT SUPP PR PRN (15:00)
[2021-08-04] MEDS ORDERED: ACETAMINOPHEN 325 MG TAB PO PRN (15:00)
[2021-08-04] MEDS ORDERED: ONDANSETRON 4 MG/2 ML INJ IV PRN (15:00)
--- NOTE | 2021-08-04 17:37 | Cat Scan Report ---
CTA neck without and with intravenous contrast material CLINICAL HISTORY: Left-sided weakness 100 ML OMNI 350 TECHNIQUE: Following acquisition of a timing bolus 0.625 mm thick contiguous axial scans were obtained from aort ic arch to the skull base during rapid bolus intravenous contrast infusion. In addition to evaluation of axial source images multiplanar reconstructions were produced and reviewed for this report. 3 manjinder ne MIP reconstructions were produced and reviewed. Contrast dose report: Omnipaque 350: 100 ml, administered intravenously All CT examinations performed at this facility utilize modulated dose reduction, iterative reconstruc tion or weight-based dosing, as appropriate, to obtain a radiation dose which is as low as can reason ably be achieved. COMPARISON: CT neck 04/18/2021 FINDINGS: Thoracic aorta:No abnormalities are identified along the course of the thoracic aorta..The origins of the great vessels have an unremarkable appearance. Brachiocephalic artery, left common carotid arter y origin and left subclavian artery all have an unremarkable appearance. Right carotid artery:No abnormalities are seen along the course of the RCCA, at the right carotid bif urcation or along the cervical portions of the YAMILET. Left carotid artery: Minimal calcified atherosclerotic plaque is seen at the distal LCCA and at the c arotid bulb without associated stenosis. No significant abnormalities are noted along the course of t he left common carotid artery, at the left carotid bifurcation or along the course of the cervical se gments of the LICA. Posterior circulation: Right vertebral artery is dominant. Both vertebral arteries reach the basilar artery origin. Basilar artery is diminutive in size to large part due to the presence of origin of the left posterior cerebral artery and large posterior communicating artery on the right. The degree of stenosis, if any, is determined utilizing NASCET like criteria. In this case there is no indication of hemodynamically significant stenosis at the carotid bifurcations or elsewhere. Evaluation of the airway reveals asymmetry of the vallecula with absent aeration of the left vallecul a. This is a new finding since 04/18/2021 Correlation with direct or indirect laryngoscopy is suggest ed to exclude the presence of a mucosal lesion in the left vallecula. Bilaterally symmetrical pirifor m sinuses are demonstrated. Vocal cords and visualized portions of the subglottic airway have an unre markable appearance. Evaluation of the nonvascular soft tissue structures reveal no additional abnormality. There is no in dication of cervical lymphadenopathy. Visualized portions of the parotid glands and the submandibular salivary glands have a normal appearance. Thyroid gland has a normal appearance. Evaluation of the l shan apices reveals no evidence of lung nodule or infiltrate. Evaluation of the cervical spine remarkable for widespread cervical spondylosis. Loss of disc height and anterior and posterior osteophyte formation are present at multiple levels. There is no indicatio n of central canal stenosis. Multifocal neuroforaminal narrowing is observed. IMPRESSION: 1. No indication of hemodynamically significant stenosis at the carotid bifurcations or elsewhere. 2. Loss of aeration of the left vallecula. This is a new finding since prior study. Correlation with direct or indirect laryngoscopy is suggested to exclude the presence of a mucosal lesion in the left vallecula. Signer Name: Phan Clarke MD Signed: 08/04/2021 5:32 PM Workstation Name: [id number]
--- NOTE | 2021-08-04 17:51 | Cat Scan Report ---
CTA head with intravenous contrast CLINICAL HISTORY: Left-sided weakness 100 ML OMNI 350 TECHNIQUE: 0.625 mm thick contiguous axial scans were obtained from the skull base to the skull vertex during r apid bolus administration of intravenous contrast material. Multiplanar reconstructions were produced in the coronal and sagittal planes. In addition 3 plane MIP instructions were produced and reviewed for this report. The axial source images and reconstructed images were reviewed for this report. CONTRAST DOSE REPORT: Omnipaque 350: 100 ml administered intravenously. All CT scans at this location are performed using CT dose reduction for ALARA by means of automated e xposure control. FINDINGS: Internal carotid arteries: Calcified atherosclerotic plaque is present along the cavernous segments o f both internal carotid arteries. This extends up to the clinoid segments. Maximum degree of stenosis is less than 50%. Middle cerebral arteries:Normal and symmetrical M1 segments of the middle cerebral arteries are demon strated. No abnormalities are seen on evaluation of the insular or opercular branches. Anterior cerebral arteries: A hypoplastic A1 segment of the right anterior cerebral artery is noted. An intact anterior communicating artery is identified. A too segments of the anterior cerebral arteri es have an unremarkable appearance. Vertebral arteries: Right vertebral artery is dominant. Both vertebral arteries reach the basilar art karlee origin. Basilar artery: Basilar artery is diminutive in size due in large part to origin of the left po sterior cerebral artery and to the presence of a moderate-sized right posterior communicating artery. Posterior cerebral arteries: The origin of the left posterior cerebral arteries noted. Otherwise norm al and symmetrical appearing posterior cerebral arteries are observed. [place]edar of [place]:Not intact. see above. Dural sinuses: Dural venous sinuses are well demonstrated on this exam. There is no evidence of dural sinus thrombosis. IMPRESSION: 1. No indication of large vessel occlusion or hemodynamically significant intracranial stenosis. Signer Name: Phan Clarke MD Signed: 08/04/2021 5:47 PM Workstation Name: [id number]
[2021-08-04] MEDS: MEMANTINE 5 MG TAB PO SCH (21:00)
[2021-08-04] MEDS: HALOPERIDOL 5 MG TAB PO SCH (21:00)
[2021-08-04] MEDS: carvediloL 6.25 MG TAB PO SCH (21:00)
[2021-08-04] MEDS: VALPROIC ACID 250 MG/5 ML ORAL LIQD PO SCH (21:00)
[2021-08-04] MEDS: traZODone 50 MG TAB PO SCH (21:00)
[2021-08-04] MEDS ORDERED: DONEPEZIL 5 MG TAB PO SCH (22:00)
--- NOTE | 2021-08-05 10:57 | Vascular Lab Report ---
DUPLEX DOPPLER ULTRASOUND CAROTID, BILATERAL INDICATION / CLINICAL INFORMATION: stroke. COMPARISON: CTA neck 08/04/2021. FINDINGS: RIGHT CAROTID: Mild to moderate atherosclerotic plaque. - PLAQUE ESTIMATE (%): < 50% - CCA velocity: 83 cm/sec. - ICA peak systolic velocity: 47 cm/sec. - ICA/CCA PSV Ratio: Less than 2. Right Vertebral Artery: Antegrade flow. LEFT CAROTID: Moderate atherosclerotic plaque. - PLAQUE ESTIMATE (%): < 50% - CCA velocity: 146 cm/sec. - ICA peak systolic velocity: 66 cm/sec. - ICA/CCA PSV Ratio: Less than 2. Left Vertebral Artery: Antegrade flow. IMPRESSION: 1. Right Internal Carotid Artery: Less than 50% diameter stenosis. 2. Left Internal Carotid Artery: Less than 50% diameter stenosis. Velocity criteria are extrapolated from diameter data as defined by the Society of Radiologists in [place] [employer] [employer] Consensus Conference, Radiology 2003; 229;340-346. NO STENOSIS (NORMAL) - Plaque = none; ICA PSV < 125 cm/sec; ICA/CCA PSV Ratio < 2.0 <50% STENOSIS - Plaque < 50%; ICA PSV < 125 cm/sec; ICA/CCA PSV Ratio < 2.0 50-69% STENOSIS - Plaque > 50%; ICA PSV = 125-230 cm/sec; ICA/CCA PSV Ratio = 2.0-4.0 >70% BUT <100% STENOSIS - Plaque > 50%; ICA PSV > 230 cm/sec; ICA/CCA PSV Ratio > 4.0 NEAR OCCLUSION - Plaque = visible lumen; ICA PSV = high/low/none; ICA/CCA PSV Ratio = variable TOTAL OCCLUSION - Plaque = no lumen; ICA PSV = none; ICA/CCA PSV Ratio = N/A Scribed by: Italia Esteban RDMS, RVT, RMSKS Scribed: 08/05/2021 9:39 AM I have reviewed the images, agree with this report, and edited this report as needed. 1 Signer Name: Fan Cedillo MD Signed: 08/05/2021 10:53 AM Workstation Name: [id number]
[2021-08-05] MEDS: D5W/0.9% NACL 1,000 ML IV SCH (12:25)
--- NOTE | 2021-08-05 12:35 | Consultation ---
History of Present Illness Consult date: 08/05/21 Reason for Consult: CVA Chief complaint: 71 YO Female with HTN, DM, HLD, Vascular Dementia, Cerebral Atherosclerosis complicated by Dysphagia, Schizophrenia presents to ED for evaluation. Patient is confused with diminished cognition and is unable to provide history the time of my evaluation. Patient history provided by EMS staff, ED staff, as well as longterm facility staff. Staff reports that patient was found to have new onset and worsening left-sided weakness this morning. EMS was notified and upon arrival the patient was found to have a focal neurologic deficit. A code stroke was called and the patient was transported to [facility] for further care and evaluation of the aforementioned symptoms. The patient was seen and evaluated in the emergency department. All lab and imaging studies reviewed. 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 Patient outside therapeutic window for TPA. Patient admitted to telemetry and initiated on CVA protocol. Telemetry neurology consulted in ED. No reports of fever, chills, chest pain, palpitation, productive cough, skin rash, recent ill contact, or known exposure to COVID-19. Prior admission on 04/18/2021 reviewed. All medication listed at time of admission has been reconciled. Advance care planning conducted in ED. patient has a positive gag reflex and is able to protect her airway without difficulty at the time of evaluation. The above history was noted and reviewed . The patient is verbal reports some improvement . Past History Past Medical History: diabetes, hypertension, hyperlipidemia, stroke, other (See HPI) Past Surgical History: No surgical history Social history: single. denies: smoking, alcohol abuse, prescription drug abuse Family history: diabetes, hypertension Medications and Allergies Allergies Allergy/AdvReac Type Severity Reaction Status Date / Time No Known Allergies Allergy Verified 08/04/21 10:59 Home Medications Medication Instructions Recorded Confirmed Last Taken Type Metformin HCl [metFORMIN] 1,000 mg PO BID 04/20/21 08/05/21 04/18/21 History VALPROIC ACID Liq [DepaKENE Liq] 500 mg PO BID 04/20/21 08/05/21 04/18/21 History amLODIPine 10 mg PO DAILY 04/20/21 08/05/21 04/18/21 History carvediloL [Coreg] 6.25 mg PO BID 04/20/21 08/05/21 04/18/21 History haloperidoL [Haloperidol] 10 mg PO BID 04/20/21 08/05/21 04/18/21 History AtorvaSTATin 10 mg PO QHS tablet 04/30/21 08/05/21 Unknown Rx Memantine 5 mg PO HS tablet 04/30/21 08/05/21 Unknown Rx amLODIPine 10 mg PO DAILY tablet 04/30/21 08/05/21 Unknown Rx carvediloL [Coreg] 6.25 mg PO DAILY tablet 04/30/21 08/05/21 Unknown Rx donepeziL [Aricept] 5 mg PO QHS tablet 04/30/21 08/05/21 Unknown Rx traZODone [Desyrel] 50 mg PO HS tablet 04/30/21 08/05/21 Unknown Rx Active Meds: Active Medications Acetaminophen (Acetaminophen 325 Mg Tab) 650 mg PO Q4H PRN PRN Reason: Pain, Mild (1-3) Aspirin (Aspirin Ec 325 Mg Tab) 325 mg PO QDAY [facility] Atorvastatin Calcium (Atorvastatin 10 Mg Tab) 10 mg PO QHS [facility] Last Admin: 08/04/21 21:00 Dose: Not Given Bisacodyl (Bisacodyl 10 Mg Rect Supp) 10 mg MT QDAY PRN PRN Reason: Constipation Carvedilol (Carvedilol 6.25 Mg Tab) 6.25 mg PO BID [facility] Last Admin: 08/04/21 21:00 Dose: Not Given Donepezil HCl (Donepezil 5 Mg Tab) 5 mg PO QHS [facility] Haloperidol (Haloperidol 5 Mg Tab) 10 mg PO BID [facility] Last Admin: 08/04/21 21:00 Dose: Not Given Hydromorphone HCl (Hydromorphone 1 Mg/1 Ml Inj) 0.5 mg IV Q23H PRN PRN Reason: Pain , Severe (7-10) Dextrose/Sodium Chloride (D5ns) 1,000 mls @ 75 mls/hr IV DIRECT [facility] Last Admin: 08/05/21 12:25 Dose: 75 mls/hr Magnesium Hydroxide (Magnesium Hydroxide (Mom) Oral Liqd Udc) 30 ml PO Q4H PRN PRN Reason: Constipation Memantine (Memantine 5 Mg Tab) 5 mg PO HS [facility] Last Admin: 08/04/21 21:00 Dose: Not Given Metoclopramide HCl (Metoclopramide 10 Mg Tab) 10 mg PO Q6H PRN PRN Reason: Nausea And Vomiting Ondansetron HCl (Ondansetron 4 Mg/2 Ml Inj) 4 mg IV Q8H PRN PRN Reason: Nausea And Vomiting Oxycodone/Acetaminophen (Oxycodone /Acetaminophen 5-325mg Tab) 1 tab PO Q16H PRN PRN Reason: Pain, Moderate (4-6) Promethazine HCl (Promethazine 25 Mg Rect Supp) 25 mg MT Q6H PRN PRN Reason: Nausea And Vomiting Sodium Chloride (Sodium Chloride 0.9% 10 Ml Flush Syringe) 10 ml IV PRN PRN PRN Reason: LINE FLUSH Trazodone HCl (Trazodone 50 Mg Tab) 50 mg PO HS [facility] Last Admin: 08/04/21 21:00 Dose: Not Given Valproic Acid (Valproic Acid 250 Mg/5 Ml Oral Liqd) 500 mg PO BID [facility] Last Admin: 08/04/21 21:00 Dose: Not Given Physical Examination - Vital Signs Vital Signs: Vital Signs Pulse Resp Pulse Ox 89 11 L 100 08/04/21 11:20 08/04/21 11:20 08/04/21 11:20 - Physical Exam Narrative exam: The patient is alert , moves all 4 extremity , there is weakness noted. Results - Laboratory Findings CBC and BMP: 08/04/21 11:11 08/04/21 12:21 Abnormal Lab Findings: Abnormal Labs 08/04/21 08/04/21 08/04/21 11:11 11:11 11:11 MCV 101 H MCH 35 H MCHC 35 H INR 0.84 L Sodium 136 L Potassium 6.0 H Creatinine 0.5 L Glucose 234 H POC Glucose Calcium 10.3 H Valproic Acid 08/04/21 08/04/21 08/05/21 11:11 11:36 08:14 MCV MCH MCHC INR Sodium Potassium Creatinine Glucose POC Glucose 204 H 182 H Calcium Valproic Acid < 2.8 L Assessment and Plan 1. Possible CVA / TIA - improved. 2. MID Reviewed CT Brain / CTA Neck - unremarkable. Strongly MRI Brain no contrast before charge . Continue PT / OT Risk Factors for CVA Discussed . If there are any questions call back . No change in medications discussed. Dr. Oconnell
[2021-08-05] MEDS: VALPROIC ACID 250 MG/5 ML ORAL LIQD PO SCH ×3 (12:36→22:43)
[2021-08-05] MEDS: ASPIRIN EC 325 MG TAB PO SCH (12:36)
[2021-08-05] MEDS: carvediloL 6.25 MG TAB PO SCH ×3 (12:36→22:43)
[2021-08-05] MEDS: HALOPERIDOL 5 MG TAB PO SCH ×3 (12:36→22:44)
--- NOTE | 2021-08-05 14:42 | Progress Note ---
Assessment and Plan --Possible TIA CVA protocol ordered: CT head, neuro check, seizure precautions, aspiration precautions, fall precautions, antiplatelet therapy, lipid panel, statin therapy, physical therapy consult, outpatient therapy consulted, speech therapy consulted, echocardiogram, carotid Doppler. Telemetry neurology consulted. Patient was outside therapeutic window for TPA. Continue aspirin and statin Wait for PT eval and MRI result -- Dysarthria as late effect of stroke, resolving Speech therapy consulted, supportive care. -- Dysphagia as late effect of cerebrovascular disease, resolving Speech therapy consulted, supportive care, aspiration precautions. Will initiate pured diet --Hyperkalemia, possibly likely dehydration treated with hyperkalemia protocol, resolved, monitor BMP --Hypertension, monitor BP We will resume home meds --History of dementia, continue memantine -- DVT prophylaxis SCD bilateral lower extremities in bed --Full CODE STATUS Disposition: Follow neurology recommendation, pending brain MRI. Wait for PT OT evaluation. If clinically stable possible discharge in 1 to 2 days. Follow BMP. Subjective Date of service: 08/05/21 Interval history: Patient seen and examined. Medical records and medication list reviewed. No acute event overnight noted by the RN. Patient denies any chest pain or difficulty breathing. Patient passed the swallow eval for pured diet Denies any focal weakness now Discussed plan of care at bedside with patient. Objective - Exam Narrative Exam: GENERAL: well-developed elderly -[place] female lying on bed appeared to be in no discomfort. HEENT: Normocephalic. Atraumatic. No conjunctival congestion or icterus. Grace ent has moist mucous membranes. NECK: Supple. Trachea midline. CHEST/LUNGS: Clear to auscultated bilaterally, breathing nonlabored. No wheezes crackles or rhonchi. HEART/CARDIOVASCULAR: Regular in rate and rhythm. S1 and S2 positive. ABDOMEN: Abdomen is soft, nontender. Patient has normal bowel sounds. SKIN: There is no rash. Warm and dry. NEURO: No focal motor deficit. Follows command. MUSCULOSKELETAL: No joint effusion or tenderness. EXTRIMITY: No edema, no cyanosis or clubbing. PSYCH: Cooperative. - Constitutional Vitals: Vital Signs - 12hr 08/05/21 08/05/21 08/05/21 03:33 05:10 08:11 Temperature 97.7 F 98.7 F Pulse Rate 75 75 Respiratory 18 18 Rate Blood Pressure 144/58 136/53 Blood Pressure [Left] O2 Sat by Pulse 98 97 99 Oximetry 08/05/21 12:00 Temperature 98.2 F Pulse Rate 78 Respiratory 18 Rate Blood Pressure Blood Pressure 136/66 [Left] O2 Sat by Pulse 98 Oximetry - Labs CBC & Chem 7: 08/04/21 11:11 08/04/21 12:21 Labs: Abnormal lab results 08/05/21 08/05/21 Range/Units 08:14 11:58 POC Glucose 182 H 149 H (70-105) mg/dL
[2021-08-05] MEDS: DONEPEZIL 5 MG TAB PO SCH ×2 (22:19→22:43)
[2021-08-05] MEDS: MEMANTINE 5 MG TAB PO SCH ×2 (22:20→22:44)
[2021-08-05] MEDS: traZODone 50 MG TAB PO SCH ×2 (22:22→22:43)
[2021-08-06] MEDS: carvediloL 6.25 MG TAB PO SCH ×3 (09:20→22:24)
[2021-08-06] MEDS: ASPIRIN EC 325 MG TAB PO SCH (09:20)
[2021-08-06] MEDS: HALOPERIDOL 5 MG TAB PO SCH ×3 (09:20→21:32)
[2021-08-06] MEDS: VALPROIC ACID 250 MG/5 ML ORAL LIQD PO SCH ×3 (09:20→21:32)
--- NOTE | 2021-08-06 14:59 | Progress Note ---
Assessment and Plan --Possible TIA CVA protocol ordered: CT head, neuro check, seizure precautions, aspiration precautions, fall precautions, antiplatelet therapy, lipid panel, statin therapy, physical therapy consult, outpatient therapy consulted, speech therapy consulted, echocardiogram, carotid Doppler. Telemetry neurology consulted. Patient was outside therapeutic window for TPA. Continue aspirin and statin Wait for PT eval and MRI result -- Dysarthria as late effect of stroke, resolving Speech therapy consulted, supportive care. -- Dysphagia as late effect of cerebrovascular disease, resolving Speech therapy consulted, supportive care, aspiration precautions. Will initiate pured diet --Hyperkalemia, possibly likely dehydration treated with hyperkalemia protocol, resolved, monitor BMP --Hypertension, monitor BP We will resume home meds --History of dementia, continue memantine --History of schizophrenia, continue home meds -- DVT prophylaxis SCD bilateral lower extremities in bed --Full CODE STATUS Disposition: SNF when clinically stable 08/06: Intermittently refusing care, patient appears to be confused. Unsure about her baseline as patient with history of schizophrenia and underlying dementia. follow neurology recommendation, pending brain MRI. Wait for PT OT evaluation. If clinically stable possible discharge in 1 to 2 days. Follow BMP. Subjective Date of service: 08/06/21 Interval history: Patient seen and examined. Medical records and medication list reviewed. No acute event overnight noted by the RN. Patient denies any chest pain or difficulty breathing. Patient tolerating pured diet no focal weakness now, patient is confused and refusing care intermittently per RN Discussed plan of care at bedside with patient's RN and also with CM . Objective - Exam Narrative Exam: GENERAL: well-developed elderly -[place] female lying on bed appeared to be in no discomfort. HEENT: Normocephalic. Atraumatic. No conjunctival congestion or icterus. Patient has moist mucous membranes. NECK: Supple. Trachea midline. CHEST/LUNGS: Clear to auscultated bilaterally, breathing nonlabored. No wheezes crackles or rhonchi. HEART/CARDIOVASCULAR: Regular in rate and rhythm. S1 and S2 positive. ABDOMEN: Abdomen is soft, nontender. Patient has normal bowel sounds. SKIN: There is no rash. Warm and dry. NEURO: No focal motor deficit. Follows command. MUSCULOSKELETAL: No joint effusion or tenderness. EXTRIMITY: No edema, no cyanosis or clubbing. PSYCH: Cooperative but confused. - Constitutional Vitals: Vital Signs - 12hr 08/06/21 08/06/21 08/06/21 07:37 10:57 12:00 Temperature 97.7 F 98.3 F Pulse Rate 87 78 80 Respiratory 18 18 18 Rate Blood Pressure 134/63 136/78 O2 Sat by Pulse 96 97 96 Oximetry - Labs CBC & Chem 7: 08/04/21 11:11 08/04/21 12:21
[2021-08-06] MEDS ORDERED: HALOPERIDOL 10 MG PO SCH (15:00)
[2021-08-06] MEDS: DONEPEZIL 5 MG TAB PO SCH (21:32)
[2021-08-06] MEDS: traZODone 50 MG TAB PO SCH (21:32)
[2021-08-06] MEDS: MEMANTINE 5 MG TAB PO SCH (21:33)
--- NOTE | 2021-08-07 11:58 | Cat Scan Report ---
CT BRAIN: 08/07/2021 INDICATION / CLINICAL INFORMATION: possible cva. No additional information provided COMPARISON: CT brain 08/04/2021 FINDINGS: BRAIN/INTRACRANIAL STRUCTURES: Unenhanced CT images of the brain were obtained and compared to the pr ior exam from 08/04/2021. There is been no change. 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 Underlying diffuse cerebral atrophy is stable. Chronic appearing hypoattenuation in the left lb is again noted. There is no evidence of acute large vessel territory ischemic injury, hemorrhage, or mass. No abnorma l extra-axial fluid collections. EXTRACRANIAL STRUCTURES: Unremarkable. IMPRESSION: No acute abnormality. Chronic ischemic and age-related changes. All CT scans at this location are performed using dose reduction to ALARA by means of automated expos ure control. Signer Name: Nicolás Montes De Oca MD Signed: 08/07/2021 11:54 AM Workstation Name: [id number]
--- NOTE | 2021-08-07 15:29 | Progress Note ---
Assessment and Plan --Possible TIA CVA protocol ordered: CT head, neuro check, seizure precautions, aspiration precautions, fall precautions, antiplatelet therapy, lipid panel, statin therapy, physical therapy consult, outpatient therapy consulted, speech therapy consulted, echocardiogram, carotid Doppler. Telemetry neurology consulted. Patient was outside therapeutic window for TPA. Continue aspirin and statin Wait for PT eval and MRI result --Acute encephalopathy Unsure about patient's baseline, patient's has history of schizophrenia and vascular dementia CT head without any acute process, neurology following, will also consult psych -- Dysarthria as late effect of stroke, resolving Speech therapy consulted, supportive care. -- Dysphagia as late effect of cerebrovascular disease, resolving Speech therapy consulted, supportive care, aspiration precautions. Will initiate pured diet --Hyperkalemia, possibly likely dehydration treated with hyperkalemia protocol, resolved, monitor BMP --Hypertension, monitor BP We will resume home meds --History of dementia, continue memantine --Schizophrenia, cont home meds --Seizure disorder, cont valproic acid -- DVT prophylaxis SCD bilateral lower extremities in bed --Full CODE STATUS Disposition: SNF when clinically stable 08/06: Intermittently refusing care, patient appears to be confused. Unsure about her baseline as patient with history of schizophrenia and underlying dementia. follow neurology recommendation, pending brain MRI. Wait for PT OT evaluation. If clinically stable possible discharge in 1 to 2 days. Follow BMP. 08/07: MRI brain pending. patient's sons phone number Oscar Harris [phone] and he gave consent for MRI and wants to transfer his Mother to [facility]. consulted psych and recommendation pending. Patient intermittently refusing care, unsure if she will cooperate for the MRI brain. Will repeat CT head in case there is any acute CVA expect to see changes from the prior CT scan which was obtained on admission. If repeat CT head normal and patient is cleared by psych possible discharge to SNF with supportive care. Subjective Date of service: 08/07/21 Interval history: Patient seen and examined. Medical records and medication list reviewed. No acute event overnight noted by the RN. Patient denies any chest pain or difficulty breathing. Patient tolerating pured diet no focal weakness now, patient is confused and refusing care intermittently per RN Discussed plan of care at bedside with patient's RN and also with CM . I called patient's son today and updated him with all clinical details Objective - Exam Narrative Exam: GENERAL: well-developed elderly -[place] female lying on bed appeared to be in no discomfort. HEENT: Normocephalic. Atraumatic. No conjunctival congestion or icterus. Patient has moist mucous membranes. NECK: Supple. Trachea midline. CHEST/LUNGS: Clear to auscultated bilaterally, breathing nonlabored. No wheezes crackles or rhonchi. HEART/CARDIOVASCULAR: Regular in rate and rhythm. S1 and S2 positive. ABDOMEN: Abdomen is soft, nontender. Patient has normal bowel sounds. SKIN: There is no rash. Warm and dry. NEURO: No focal motor deficit. Follows command. MUSCULOSKELETAL: No joint effusion or tenderness. EXTRIMITY: No edema, no cyanosis or clubbing. PSYCH: Cooperative but confused. - Constitutional Vitals: Vital Signs - 12hr 08/07/21 08/07/21 08/07/21 04:03 11:47 12:00 Temperature 98.2 F 98.5 F Pulse Rate 74 70 70 Respiratory 18 18 Rate Blood Pressure 140/65 142/71 O2 Sat by Pulse 93 99 Oximetry - Labs CBC & Chem 7: 08/04/21 11:11 08/04/21 12:21 Labs: Abnormal lab results 08/07/21 Range/Units 11:46 POC Glucose 187 H (70-105) mg/dL
[2021-08-07] MEDS: ASPIRIN EC 325 MG TAB PO SCH (17:44)
[2021-08-07] MEDS: carvediloL 6.25 MG TAB PO SCH ×2 (17:44→21:15)
[2021-08-07] MEDS: VALPROIC ACID 250 MG/5 ML ORAL LIQD PO SCH ×2 (17:44→21:15)
[2021-08-07] MEDS: HALOPERIDOL 5 MG TAB PO SCH ×2 (17:44→21:15)
--- NOTE | 2021-08-07 18:37 | Electrocardiograph Report ---
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
[2021-08-07] MEDS: traZODone 50 MG TAB PO SCH (21:15)
[2021-08-07] MEDS: MEMANTINE 5 MG TAB PO SCH (21:15)
[2021-08-07] MEDS: DONEPEZIL 5 MG TAB PO SCH (21:15)
[2021-08-07] MEDS: D5W/0.9% NACL 1,000 ML IV SCH (21:57)
[2021-08-08] MEDS: carvediloL 6.25 MG TAB PO SCH ×3 (04:33→21:46)
[2021-08-08] MEDS: HALOPERIDOL 5 MG TAB PO SCH ×2 (10:11→21:46)
[2021-08-08] MEDS: ASPIRIN EC 325 MG TAB PO SCH (10:11)
[2021-08-08] MEDS: VALPROIC ACID 250 MG/5 ML ORAL LIQD PO SCH ×3 (10:11→21:56)
--- NOTE | 2021-08-08 13:35 | Discharge Summary ---
Providers - Providers Date of Admission: 08/04/21 14:02 Date of discharge: 08/09/21 Attending physician: VIANNEY BONILLA 08/04/21 14:02 Occupational Therapy Evaluate and Treat [CONS] Routine Comment: Reason For Exam: Neuro deficits Physical Therapy Evaluation and Treat [CONS] Routine Comment: Reason For Exam: Neuro deficits 08/04/21 19:07 Speech Therapy Evaluation and Treat [CONS] Routine Reason For Exam: CVA 08/05/21 09:19 Consult to Physician [CONS] Routine Comment: Consulting Provider: SUASN YEPEZ Physician Instructions: Reason For Exam: possible CVA 08/07/21 10:06 Consult to Mental Health [CONS] Routine Reason For Exam: h/o schizophrenia Primary care physician: JORGE A MADERA Hospitalization Condition: Fair Hospital course: 71 YO Female with HTN, DM, HLD, Vascular Dementia, Schizophrenia presents to ED from senior living confused with diminished cognition. Serum chemistry was suggestive for hyperkalemia with potassium level as high as 6, patient was evaluated by telemetry neurology and admitted to the hospital for stroke work- up. Brief clinical course: 08/06: Intermittently refusing care, patient appears to be confused. Unsure about her baseline as patient with history of schizophrenia and underlying dementia. follow neurology recommendation, pending brain MRI. Wait for PT OT evaluation. If clinically stable possible discharge in 1 to 2 days. Follow BMP. 08/07: MRI brain pending. patient's sons phone number Oscar Harris [phone] and he gave consent for MRI and wants to transfer his Mother to [facility]. consulted psych and recommendation pending. Patient intermittently refusing care, unsure if she will cooperate for the MRI brain. Will repeat CT head in case there is any acute CVA expect to see changes from the prior CT scan which was obtained on admission. If repeat CT head normal and patient is cleared by psych possible discharge to SNF with supportive care. 08/08: Repeat CT head yesterday was negative for any acute stroke. Patient more cooperative now and per RN did take her morning medications. Covid test is pending, if negative patient could discharge to senior living today. Patient was evaluated by psychiatry and recommended outpatient follow-up. Discharge diagnosis: --Possible TIA CVA protocol ordered: CT head, neuro check, seizure precautions, aspiration precautions, fall precautions, antiplatelet therapy, lipid panel, statin therapy, physical therapy consult, outpatient therapy consulted, speech therapy consulted, echocardiogram, carotid Doppler. Telemetry neurology consulted. Patient was outside therapeutic window for TPA. Continue aspirin and statin MRI was unable due to do as was not cooperative, evaluated by PT and speech therapy Speech recommended. Diet and patient was tolerating diet CT head x2 -ve for any acute stroke --Acute encephalopathy Unsure about patient's baseline, patient's has history of schizophrenia and vascular dementia CT head without any acute process, neurology following, psych recommended outpatient follow-up -- Dysarthria as late effect of stroke, resolving Speech therapy consulted, tolerating pured diet, supportive care. -- Dysphagia as late effect of cerebrovascular disease, resolving Speech therapy consulted, supportive care, aspiration precautions. initiated pured diet --Hyperkalemia, possibly likely dehydration treated with hyperkalemia protocol, resolved, monitor BMP --Hypertension, monitor BP resumed home meds --History of dementia, continue memantine --Schizophrenia, cont home meds --Seizure disorder, cont valproic acid -- DVT prophylaxis SCD bilateral lower extremities in bed --Full CODE STATUS Disposition: SNF when clinically stable Disposition: 30 STILL A PATIENT Final Discharge Diagnosis (Prints w/discharge instructions): --Possible TIA. --Acute encephalopathy. -- Dysarthria and dysphagia, improved. --Hyperkalemia, resolved. --Hypertension. --Vascular dementia. --Schizophrenia. --Seizure disorder Time spent for discharge: 34 minutes Core Measure Documentation - Palliative Care Palliative Care/ Comfort Measures: Not Applicable - Core Measures Any of the following diagnoses?: stroke - Stroke Discharge Requirements Statin for LDL = or >70 mg/dl on DC: Yes Anticoag for atrial fib/atrial flutter: Not Applicable Antithrombotic for ischemic stroke: Yes Exam - Physical Exam Narrative exam: GENERAL: well-developed elderly -[place] female lying on bed appeared to be in no discomfort. HEENT: Normocephalic. Atraumatic. No conjunctival congestion or icterus. Patient has moist mucous membranes. NECK: Supple. Trachea midline. CHEST/LUNGS: Clear to auscultated bilaterally, breathing nonlabored. No wheezes crackles or rhonchi. HEART/CARDIOVASCULAR: Regular in rate and rhythm. S1 and S2 positive. ABDOMEN: Abdomen is soft, nontender. Patient has normal bowel sounds. SKIN: There is no rash. Warm and dry. NEURO: No focal motor deficit. Follows command. MUSCULOSKELETAL: No joint effusion or tenderness. EXTRIMITY: No edema, no cyanosis or clubbing. PSYCH: Cooperative . - Constitutional Vitals: Temp Pulse Resp BP Pulse Ox 97.9 F 59 L 18 144/62 98 08/08/21 12:34 08/08/21 12:34 08/08/21 12:34 08/08/21 12:34 08/08/21 12:34 Plan Activity: fall precautions Weight Bearing Status: Non-Weight Bearing Diet: other (Pured diet) Follow up with: JORGE A MADERA MD [Primary Care Provider] - 3-5 Days Forms: Discharge Signature Page Prescriptions: Aspirin EC [Halfprin EC] 81 mg PO QDAY #30 tablet.
[2021-08-08] MEDS: MEMANTINE 5 MG TAB PO SCH (21:46)
[2021-08-08] MEDS: traZODone 50 MG TAB PO SCH (21:46)
[2021-08-08] MEDS: DONEPEZIL 5 MG TAB PO SCH (21:47)
[2021-08-09] MEDS: HALOPERIDOL 5 MG TAB PO SCH (11:33)
[2021-08-09] MEDS: ASPIRIN EC 325 MG TAB PO SCH (11:33)
[2021-08-09] MEDS: VALPROIC ACID 250 MG/5 ML ORAL LIQD PO SCH (11:34)
[2021-08-09] MEDS: carvediloL 6.25 MG TAB PO SCH (11:34)
--- NOTE | 2021-08-09 11:36 | Progress Note ---
Assessment and Plan --Possible TIA CVA protocol ordered: CT head, neuro check, seizure precautions, aspiration precautions, fall precautions, antiplatelet therapy, lipid panel, statin therapy, physical therapy consult, outpatient therapy consulted, speech therapy consulted, echocardiogram, carotid Doppler. Telemetry neurology consulted. Patient was outside therapeutic window for TPA. Continue aspirin and statin Wait for PT eval and MRI result --Acute encephalopathy Unsure about patient's baseline, patient's has history of schizophrenia and vascular dementia CT head without any acute process, neurology following, will also consult psych -- Dysarthria as late effect of stroke, resolving Speech therapy consulted, supportive care. -- Dysphagia as late effect of cerebrovascular disease, resolving Speech therapy consulted, supportive care, aspiration precautions. Will initiate pured diet --Hyperkalemia, possibly likely dehydration treated with hyperkalemia protocol, resolved, monitor BMP --Hypertension, monitor BP We will resume home meds --History of dementia, continue memantine --Schizophrenia, cont home meds --Seizure disorder, cont valproic acid -- DVT prophylaxis SCD bilateral lower extremities in bed --Full CODE STATUS Disposition: SNF when clinically stable 08/06: Intermittently refusing care, patient appears to be confused. Unsure about her baseline as patient with history of schizophrenia and underlying dementia. follow neurology recommendation, pending brain MRI. Wait for PT OT evaluation. If clinically stable possible discharge in 1 to 2 days. Follow BMP. 08/07: MRI brain pending. patient's sons phone number Oscar Harris [phone] and he gave consent for MRI and wants to transfer his Mother to [facility]. consulted psych and recommendation pending. Patient intermittently refusing care, unsure if she will cooperate for the MRI brain. Will repeat CT head in case there is any acute CVA expect to see changes from the prior CT scan which was obtained on admission. If repeat CT head normal and patient is cleared by psych possible discharge to SNF with supportive care. 08/08: Negative for any acute stroke. Patient more cooperative now and per RN did take her morning medications. Covid test is pending, if negative patient could discharge to half-way. Subjective Date of service: 08/08/21 Interval history: Patient seen and examined. Medical records and medication list reviewed. No acute event overnight noted by the RN. Patient denies any chest pain or difficulty breathing. Patient tolerating pured diet no focal weakness now, patient is confused and refusing care intermittently per RN she took her morning meds today Discussed plan of care at bedside with patient's RN Objective - Exam Narrative Exam: GENERAL: well-developed elderly -[place] female lying on bed appeared to be in no discomfort. HEENT: Normocephalic. Atraumatic. No conjunctival congestion or icterus. Patient has moist mucous membranes. NECK: Supple. Trachea midline. CHEST/LUNGS: Clear to auscultated bilaterally, breathing nonlabored. No wheezes crackles or rhonchi. HEART/CARDIOVASCULAR: Regular in rate and rhythm. S1 and S2 positive. ABDOMEN: Abdomen is soft, nontender. Patient has normal bowel sounds. SKIN: There is no rash. Warm and dry. NEURO: No focal motor deficit. Follows command. MUSCULOSKELETAL: No joint effusion or tenderness. EXTRIMITY: No edema, no cyanosis or clubbing. PSYCH: Cooperative but confused. - Constitutional Vitals: Vital Signs - 12hr 08/08/21 08/09/21 08/09/21 23:50 02:27 05:47 Temperature 97.1 F L 97.9 F Pulse Rate 55 L 55 L Respiratory 20 18 Rate Blood Pressure 137/64 150/57 O2 Sat by Pulse 100 100 100 Oximetry 08/09/21 07:38 Temperature 97.9 F Pulse Rate 63 Respiratory 17 Rate Blood Pressure 169/61 O2 Sat by Pulse 100 Oximetry - Labs CBC & Chem 7: 08/04/21 11:11 08/04/21 12:21 Labs: Abnormal lab results 08/08/21 08/08/21 08/08/21 Range/Units 11:55 16:43 21:07 POC Glucose 148 H 136 H 161 H (70-105) mg/dL
[2021-08-09 12:27] VITALS: BP 104/65
--- NOTE | 2021-08-09 13:56 | Consultation ---
History of Present Illness - Reason for Consult Consult date: 08/09/21 Reason for consult: History of schizophrenia - Chief Complaint Chief complaint: 71 YO Female with HTN, DM, HLD, Vascular Dementia, Cerebral Atherosclerosis complicated by Dysphagia, Schizophrenia presents to ED for evaluation. Patient is confused with diminished cognition and is unable to provide history the time of my evaluation. Patient history provided by EMS staff, ED staff, as well as snf facility staff. Staff reports that patient was found to have new onset and worsening left-sided weakness this morning. EMS was notified and upon arrival the patient was found to have a focal neurologic deficit. A code stroke was called and the patient was transported to [facility] for further care and evaluation of the aforementioned symptoms. The patient was seen and evaluated in the emergency department. All lab and imaging studies reviewed. 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 Patient outside therapeutic window for TPA. Patient admitted to telemetry and initiated on CVA protocol. Telemetry neurology consulted in ED. No reports of fever, chills, chest pain, palpitation, productive cough, skin rash, recent ill contact, or known exposure to COVID-19. Prior admission on 04/18/2021 reviewed. All medication listed at time of admission has been reconciled. Advance care planning conducted in ED. patient has a positive gag reflex and is able to protect her airway without difficulty at the time of evaluation. The above history was noted and reviewed . The patient is verbal reports some improvement . - History of Present Psychiatric Illness Per Note: 71 YO Female with HTN, DM, HLD, Vascular Dementia, Cerebral Atherosclerosis complicated by Dysphagia, Schizophrenia presents to ED for evaluation. Patient is confused with diminished cognition and is unable to provide history the time of my evaluation. Patient history provided by EMS staff, ED staff, as well as snf facility staff. Staff reports that patient was found to have new onset and worsening left-sided weakness this morning. EMS was notified and upon arrival the patient was found to have a focal neurologic deficit. A code stroke was called and the patient was transported to [facility] for further care and evaluation of the aforementioned symptoms. The patient was seen and evaluated in the emergency department. All lab and imaging studies reviewed. 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 Patient outside therapeutic window for TPA. Patient admitted to telemetry and initiated on CVA protocol. Telemetry neurology consulted in ED. No reports of fever, chills, chest pain, palpitation, productive cough, skin rash, recent ill contact, or known exposure to COVID-19. Prior admission on 04/18/2021 reviewed. All medication listed at time of admission has been r econciled. Advance care planning conducted in ED. patient has a positive gag reflex and is able to protect her airway without difficulty at the time of evaluation. The patient is a 77 year old female with history of schizophrenia. In my encounter with the patient, she is calm, alert and oriented x2 with constricted affect. The patient reports doing well. The patient is a poor historian and unable to provide detailed information. She denies any current suicidal/homicidal ideation and denies hallucinations. Diagnoses: Schizophrenia Suicide attempts or Self-harm behavior: Unknown Prior psychiatric hospitalizations: Unknown Substance Abuse history: Denies Previous psychiatric medications tried: Unable to recall PAST MEDICAL HISTORY: unknown Family Psychiatric History: None reported or documented SOCIAL HISTORY REVIEW OF SYSTEMS Constitutional: Negative for weight loss ENT: Negative for stridor Respiratory: Negative for cough or hemoptysis All other systems reviewed and are negative MENTAL STATUS EXAMINATION General Appearance and Behavior: Age appropriate, good hygiene, wearing appropriate clothes, calm, cooperative Cooperation: Participating/engaged Psychomotor Behavior: Normal Mood: "ok" Affect and affective range: congruent with mood Thought Process: Goal directed Thought Content: Reality oriented Speech: Normal volume, Regular rate and rhythm, Suicidal Ideation: Denies Homicidal Ideation: Denies Hallucinations: Denies Delusions: None elicited Impulse Control: Unimpaired Insight and Judgment: poor insight and judgment, Memory: Normal, Attention: Normal Orientation: Alert, oriented x2 Assessment and Plan (1)Hx of schizophrenia Current Visit: Yes Status: Acute Treatment Plan The patient needs to follow up with his outpatient psychiatrist and therapist. Continue home meds Disposition: Do not recommend psychiatric inpatient admission at this time. [employer] will provide patient with psychiatric outpatient resources. Will sign off. Thanks Case staffed with Dr. Britton Medications and Allergies Allergies Allergy/AdvReac Type Severity Reaction Status Date / Time No Known Allergies Allergy Verified 08/04/21 10:59 Home Medications Medication Instructions Recorded Confirmed Last Taken Type Metformin HCl [metFORMIN] 1,000 mg PO BID 04/20/21 08/05/21 04/18/21 History VALPROIC ACID Liq [DepaKENE Liq] 500 mg PO BID 04/20/21 08/05/21 04/18/21 History amLODIPine 10 mg PO DAILY 04/20/21 08/05/21 04/18/21 History carvediloL [Coreg] 6.25 mg PO BID 04/20/21 08/05/21 04/18/21 History haloperidoL [Haloperidol] 10 mg PO BID 04/20/21 08/05/21 04/18/21 History AtorvaSTATin 10 mg PO QHS tablet 04/30/21 08/05/21 Unknown Rx Memantine 5 mg PO HS tablet 04/30/21 08/05/21 Unknown Rx amLODIPine 10 mg PO DAILY tablet 04/30/21 08/05/21 Unknown Rx carvediloL [Coreg] 6.25 mg PO DAILY tablet 04/30/21 08/05/21 Unknown Rx donepeziL [Aricept] 5 mg PO QHS tablet 04/30/21 08/05/21 Unknown Rx traZODone [Desyrel] 50 mg PO HS tablet 04/30/21 08/05/21 Unknown Rx Active Meds: Active Medications Acetaminophen (Acetaminophen 325 Mg Tab) 650 mg PO Q4H PRN PRN Reason: Pain, Mild (1-3) Aspirin (Aspirin Ec 325 Mg Tab) 325 mg PO QDAY [facility] Last Admin: 08/09/21 11:33 Dose: 325 mg Atorvastatin Calcium (Atorvastatin 10 Mg Tab) 10 mg PO QHS [facility] Last Admin: 08/08/21 21:47 Dose: 10 mg Bisacodyl (Bisacodyl 10 Mg Rect Supp) 10 mg HI QDAY PRN PRN Reason: Constipation Carvedilol (Carvedilol 6.25 Mg Tab) 6.25 mg PO BID [facility] Last Admin: 08/09/21 11:34 Dose: 6.25 mg Donepezil HCl (Donepezil 5 Mg Tab) 5 mg PO QHS [facility] Last Admin: 08/08/21 21:47 Dose: 5 mg Haloperidol (Haloperidol 5 Mg Tab) 10 mg PO BID [facility] Last Admin: 08/09/21 11:33 Dose: 10 mg Hydromorphone HCl (Hydromorphone 1 Mg/1 Ml Inj) 0.5 mg IV Q23H PRN PRN Reason: Pain , Severe (7-10) Magnesium Hydroxide (Magnesium Hydroxide (Mom) Oral Liqd Udc) 30 ml PO Q4H PRN PRN Reason: Constipation Memantine (Memantine 5 Mg Tab) 5 mg PO HS [facility] Last Admin: 08/08/21 21:46 Dose: 5 mg Metoclopramide HCl (Metoclopramide 10 Mg Tab) 10 mg PO Q6H PRN PRN Reason: Nausea And Vomiting Ondansetron HCl (Ondansetron 4 Mg/2 Ml Inj) 4 mg IV Q8H PRN PRN Reason: Nausea And Vomiting Oxycodone/Acetaminophen (Oxycodone /Acetaminophen 5-325mg Tab) 1 tab PO Q16H PRN PRN Reason: Pain, Moderate (4-6) Promethazine HCl (Promethazine 25 Mg Rect Supp) 25 mg HI Q6H PRN PRN Reason: Nausea And Vomiting Sodium Chloride (Sodium Chloride 0.9% 10 Ml Flush Syringe) 10 ml IV PRN PRN PRN Reason: LINE FLUSH Trazodone HCl (Trazodone 50 Mg Tab) 50 mg PO [facility] Last Admin: 08/08/21 21:46 Dose: 50 mg Valproic Acid (Valproic Acid 250 Mg/5 Ml Oral Liqd) 500 mg PO BID [facility] Last Admin: 08/09/21 11:34 Dose: 500 mg Mental Status Exam - Vital signs Last Vital Signs Temp 98.3 F 08/09/21 11:19 Pulse 59 L 08/09/21 11:19 Resp 17 08/09/21 11:19 BP 104/65 08/09/21 11:19 Pulse Ox 100 08/09/21 11:19 Results Result Diagrams: 08/04/21 11:11 08/04/21 12:21 Abnormal lab results 08/08/21 08/08/21 08/08/21 Range/Units 11:55 16:43 21:07 POC Glucose 148 H 136 H 161 H (70-105) mg/dL All other labs normal.
== END 2021-08-09 14:00 | DRG 69 ==
LOC: ED 10:56 → 4A 14:02
PROVIDERS: ADMIT Internal Medicine; ATTEND Internal Medicine
DX: G45.9 Transient cerebral ischemic attack, unspecified (principal); G93.40 Encephalopathy, unspecified; I67.2 Cerebral atherosclerosis; R13.10 Dysphagia, unspecified; R41.89 Other symptoms and signs involving cognitive functions and awareness; I10 Essential (primary) hypertension; F01.50 Vascular dementia, unspecified severity, without behavioral disturbance, psychotic disturbance, mood disturbance, and anxiety; E78.5 Hyperlipidemia, unspecified; F20.9 Schizophrenia, unspecified; Z20.822 Contact with and (suspected) exposure to COVID-19; E11.9 Type 2 diabetes mellitus without complications; I69.391 Dysphagia following cerebral infarction; E87.5 Hyperkalemia; I69.322 Dysarthria following cerebral infarction; E86.0 Dehydration; Z79.84 Long term (current) use of oral hypoglycemic drugs; Z82.49 Family history of ischemic heart disease and other diseases of the circulatory system; Z83.3 Family history of diabetes mellitus
CPT/HCPCS: 36415; 70450; 70496; 70498; 80053; 80164; 82962; 84132; 85025; 85610; 85670; 85730; 93005; 93306; 93880; G0378; J3490; C8929; J7042; Q9967; U0003